=== PATIENT | male | born 1980 | race Caucasian/White ===

== ENCOUNTER 2018-03-27 15:30 | Emergency (ER) | payer MEDICAID, SELFPAY ==
[2018-03-27 15:59] VITALS: BP 113/84; PULSE 110; RESP 16; TEMP 37.3; O2SAT 99
--- NOTE | 2018-03-27 16:09 | ED.GENADUL_ITS ---
Disposition Clinical Impression: Cutaneous abscess Disposition: HOME Condition: Good Instructions: Abscess (ED) Additional Instructions: Take antibiotics as prescribed. Remove wick in 24-48 hours with dressing change and then may change to regular Band-Aid. Take antibiotics as prescribed. Please follow-up with Dr. De Jesus as you have planned. Return to the emergency department for any acute concerns Prescriptions: Sulfameth/Trimeth Ds [Bactrim Ds Tablet] 1 each PO BID #14 tab Medical Decision Making - Medical Decision Making 37-year-old male presents with abscess to right upper back. Consented for incision and drainage; performed with release of purulent fluid. Iodoform wick placed. Patient instructed as to home care and follow-up. I will place him on a course of oral antibiotics. He states he has plan to see Dr. De Jesus in follow- up for reevaluation of recurrent scrotal abscesses. History of Present Illness - General Chief complaint: Cellulitis Stated complaint: ?CYST ON BACK Time Seen by Provider: 03/27/18 16:03 - History of Present Illness Initial comments: Cyst on right back: This is a 37-year-old male with previous cyst requiring lancing. He states that he has a gradual onset over to 3 days time of right upper back swelling, moderate aching, nonradiating pain associated with drainage from what he feels is a cyst. He denies manipulating the area. He has not had a fever but has noted some chills. No other exacerbating or ameliorating factors per - Related Data Mirtazapine [Remeron] 30 mg PO HS 11/10/12 Phenobarbital 32.4 mg PO DAILY 11/10/12 Phenobarbital 97.2 mg PO HS 11/10/12 Citalopram Hydrobromide [Celexa] 40 mg PO DAILY 10/15/16 Melatonin/Pyridoxine HCl (B6) [Melatonin 5 mg Tablet] 2 each PO PRN 02/04/18 Dicyclomine [Bentyl] 10 mg PO Q8H PRN #15 cap 02/12/18 Diclofenac Sodium [Voltaren] 4 g TP QID #100 g 02/19/18 Sulfamethoxazole/Trimethoprim [Bactrim Ds Tablet] 1 tab-cap PO BID #14 tab-cap 02/23/18 Sulfameth/Trimeth Ds [Bactrim Ds Tablet] 1 each PO BID #14 tab 03/27/18 Allergies Allergy/AdvReac Type Severity Reaction Status Date / Time aspirin Allergy Intermediate Skin Rash Unverified 03/27/18 16:02 ketorolac tromethamine Allergy Unknown Unverified 03/27/18 16:02 [From Toradol] lidocaine Allergy pt reports Unverified 03/27/18 16:02 seizures tramadol AdvReac Mild stomach Unverified 03/27/18 16:02 cramps codeine AdvReac Unverified 03/27/18 16:02 ibuprofen AdvReac Nausea Unverified 03/27/18 16:02 Review of Systems Other: 6 systems reviewed, otherwise negative Past Medical History - Past Medical History Medical history: seizures Migraines, DJD of L4-L5 Surgical history: other (rt it band) Family history: CAD/DE, cancer, diabetes - Social History Alcohol use: none Drug use: none General Exam - General Limitations: no limitations General appearance: alert, in no apparent distress - Head Head exam: Present: atraumatic, normocephalic - Eye Eye exam: Present: PERRL, EOMI - ENT ENT exam: Present: normal exam - Respiratory Respiratory exam: Present: normal lung sounds bilaterally. Absent: respiratory distress - Cardiovascular Cardiovascular Exam: Present: regular rate, normal rhythm - GI/Abdominal GI/Abdominal exam: Present: soft. Absent: distended, tenderness - Extremities Exam Extremities exam: Present: normal inspection - Back Exam Back exam: Present: other (Right upper back, paramidline tender cystic structure with surrounding erythema. It measures approximate 3 x 5 cm ) - Neurological Exam Neurological exam: Present: alert, oriented X3 - Psychiatric Psychiatric exam: Present: normal affect, normal mood - Skin Skin exam: Present: warm, dry, intact Course Vital Signs - 24 hr 03/27/18 15:59 Temperature 37.3 C Pulse 110 H Respiratory 16 Rate Blood Pressure 113/84 Pulse Oximetry 99
== END 2018-03-27 16:51 | disposition home or self-care (01) ==
PROVIDERS: Emergency Provider Emergency Medicine; PCP Family Medicine
DX: L02.12 Furuncle of neck (principal)
CPT/HCPCS: 10060

== ENCOUNTER 2018-09-16 13:21 | Emergency (ER) | payer MEDICAID, SELFPAY ==
[2018-09-16 13:24] VITALS: BP 119/59; PULSE 110; RESP 20; TEMP 37; O2SAT 97
--- NOTE | 2018-09-16 13:38 | ED.GENADUL_ITS ---
Discharge Plan Disposition Patient Disposition: HOME Condition: Good Discharge Details Chief Complaint: Abd Prob Clinical Impression: Gastritis, Vomiting, Influenza Primary Care Provider: Ehsan Crockett ED Provider: Tree Huynh Home Meds and New Rx's Prescriptions: New ondansetron HCl [Zofran] 4 mg tablet 4 mg PO TID Qty: 10 RF: 0 No Action melatonin-pyridoxine HCl (B6) 1 EACH tablet 2 ea PO PRN RF: 0 diclofenac sodium [Voltaren] 100 GM gel 4 g Topical QID Qty: 100 RF: 0 sulfamethoxazole-trimethoprim [Bactrim DS] 1 EACH tablet 1 tab-cap PO BID Qty: 14 RF: 0 mirtazapine 30 MG tablet 30 mg PO HS RF: 0 phenobarbital 32.4 MG tablet 97.2 mg PO HS RF: 0 phenobarbital 32.4 MG tablet 32.4 mg PO DAILY RF: 0 citalopram [Celexa] 40 MG tablet 40 mg PO DAILY RF: 0 sulfamethoxazole-trimethoprim 1 TAB tablet 1 ea PO BID Qty: 14 RF: 0 dicyclomine 10 MG capsule 10 mg PO Q8H PRN (Reason: Abdominal Pain) Qty: 15 RF: 0 Discharge Instructions Instructions: Influenza (ED), Gastroenteritis (ED) Additional Instructions: Please drink 10-12 cups of water per day. Please take the Zofran as needed for nausea. If you notice any worsening of your symptoms, or any new symptoms such as vomiting, diarrhea, fever, chills, shortness of breath, chest pain, numbness, weakness, or fainting , please return immediately to the emergency department for reevaluation. Please follow up with your primary care provider as soon as possible for reassessment and reevaluation. As always, it was a pleasure participating in your medical care today. Referrals: Ehsan Crockett [Primary Care Provider] - Medical Decision Making This is a very pleasant 38-year-old male who presents for evaluation of upper respiratory-like symptoms, in conjunction with nausea and vomiting. He does have mild headache but denies any neck pain or stiffness. Physical exam demonstrates no significant abdominal tenderness, no signs or symptoms concerning for meningitis. He does look notably dehydrated. He has sick contacts of both his mother and his son who has similar symptoms. Physical exam findings are inconsistent with acute surgical abdomen. We will rehydrate the patient, evaluate for any significant laboratory abnormality. I did discuss with him potential imaging, however the patient would like to hold off on any imaging at this time. We discussed risks and benefits of this and the patient understands 2:52 PM Laboratory workup shows no significant abnormalities, unfortunately the patient is flu positive. No significant white count, no bilirubin or transaminitis abnormalities. No signs of significant pancreatitis. On reassessment after fluid hydration, and medication for migraine the patient is feeling notably resolved. He has been able to tolerate p.o. well without any difficulty. No abdominal pain on repeat exam. Vital signs have improved, diagnosis of flu, notable rehydration and no concerning abdominal exam I feel the patient be dis charged home. He still does not want any radiographic imaging. We discussed red flags which to return, the importance of hydration and close follow-up. I have extensively reviewed the treatment plan and discharge instructions with the patient and their family. I have addressed all patient concerns at this time. The patient and family was made aware of what symptoms to monitor for that would warrant a return to the emergency department. Discussed the plan with the patient and family, they demonstrate verbal understanding and agreement with our assessment and plan at this time. HPI General Date/Time Provider Initiated Documentation: 09/16/18 13:22 . HPI Narrative: This is a 38-year-old male with a past medical history of seizures, and chronic migraines who presents today with for evaluation of cough, URI-like symptoms, nausea and vomiting for the last 2-3 days in conjunction with mild chills. The patient states that he has a feeling sick contact at home with both his mother and his son who has similar symptoms. He denies any fever. He also does admit to a very mild headache, which states that feels similar to his chronic migraines. He denies any neck pain or stiffness O. He denies any significant abdominal pain states that his abdominal sensation is mainly nausea. He denies any chest pain or shortness of breath. He denies any hematochezia, melena, acholic stool, hematemesis, or diarrhea. Denies any recent medication changes he has no other complaints at this time. Patient has been able to eat and drink some, but does feel notably nauseous after this Related Data Home Medications Medication Instructions Recorded Confirmed mirtazapine 30 mg PO HS 11/10/12 03/27/18 phenobarbital 32.4 mg PO DAILY 11/10/12 03/27/18 phenobarbital 97.2 mg PO HS 11/10/12 03/27/18 citalopram [Celexa] 40 mg PO DAILY 10/15/16 03/27/18 melatonin-pyridoxine HCl (B6) 2 ea PO PRN 02/04/18 03/27/18 dicyclomine 10 mg PO Q8H PRN #15 cap 02/12/18 03/27/18 diclofenac sodium [Voltaren] 4 g TOPICAL QID #100 g 02/19/18 sulfamethoxazole-trimethoprim 1 tab-cap PO BID #14 tab-cap 02/23/18 [Bactrim DS] sulfamethoxazole-trimethoprim 1 ea PO BID #14 tab 03/27/18 ondansetron HCl [Zofran] 4 mg PO TID #10 tab 09/16/18 Previous Rx's Medication Instructions Recorded dicyclomine 10 mg PO Q8H PRN #15 cap 02/12/18 diclofenac sodium [Voltaren] 4 g TOPICAL QID #100 g 02/19/18 sulfamethoxazole-trimethoprim 1 tab-cap PO BID #14 tab-cap 02/23/18 [Bactrim DS] sulfamethoxazole-trimethoprim 1 ea PO BID #14 tab 03/27/18 ondansetron HCl [Zofran] 4 mg PO TID #10 tab 09/16/18 Allergies Allergy/AdvReac Type Severity Reaction Status Date / Time aspirin Allergy Intermediate Skin Rash Unverified 03/27/18 16:02 ketorolac tromethamine Allergy Unknown Unverified 03/27/18 16:02 [From Toradol] lidocaine Allergy pt reports Unverified 03/27/18 16:02 seizures tramadol AdvReac Mild stomach Unverified 03/27/18 16:02 cramps codeine AdvReac Unverified 03/27/18 16:02 ibuprofen AdvReac Nausea Unverified 03/27/18 16:02 General Stated Complaint: Abd Prob KELY: 3 Review of Systems Review of Systems All systems reviewed & are unremarkable except as noted in HPI and below PFSH Social History Smoking and Tabacco status: Former Tobacco Use Exam Narrative Exam Narrative: 1.Const: Well-nourished, Well-developed, appearing stated age 2.Eyes: PERRL, no conjunctival injection, and symmetrical lids. 3.ENT: Atraumatic external nose and ears. Notably dry MM. Neck: Symmetric, trachea midline, No thyromegaly. Patient demonstrates good movement of cervical neck. There is no nuchal rigidity, no nuchal tenderness. Patient is able to flex the neck without any difficulty or significant pain. Negative Kernig's and Brudzinski sign. 4.CVS: +S1/S2, No murmurs or gallops. Peripheral pulses 2+ and equal in all extremities. Brisk capillary refill in all extremities. 5.RESP: Unlabored respiratory effort. Clear to auscultation bilaterally. No wheezes rales or rhonchi 6.GI: Soft, Nontender/Nondistended, No hepatosplenomegaly. No guarding or rebound. No signs of an acute surgical abdomen. Negative obturator and psoas sign. No flank or CVA tenderness. 7.MSK: Normocephalic/Atraumatic, Extremities w/o deformity or ttp No cyanosis or clubbing, Normal movement of all extremities 8.Skin: Warm, Dry. No rashes or lesions. 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 Sensation grossly intact, no focal neurologic deficits. 10.Psych: (AAO) x3. Appropriate mood and affect Course Vital Signs Temperature 37.0 C 09/16/18 13:24 Pulse 110 H 09/16/18 13:24 Respiratory Rate 20 09/16/18 13:24 Blood Pressure 119/59 L 09/16/18 13:24 Pulse Oximetry 97 09/16/18 13:24 Temperature 37.0 C 09/16/18 13:24 Temperature Source Temporal Artery Scan 09/16/18 13:24 Pulse 110 H 09/16/18 13:24 Respiratory Rate 20 09/16/18 13:24 Blood Pressure 119/59 L 09/16/18 13:24 Blood Pressure Position Sitting 09/16/18 13:24 Pulse Oximetry 97 09/16/18 13:24 Oxygen Delivery Method Room Air 09/16/18 13:24 Oxygen Flow Rate 0 09/16/18 13:24
[2018-09-16] MEDS: Acetaminophen 500 MG TAB 1000 MG PO (13:46)
[2018-09-16] MEDS: methylPREDNISolone SUCC 125 MG VIAL IVP (13:47)
[2018-09-16] MEDS: diphenhydrAMINE 25 MG CAP PO (13:47)
[2018-09-16] MEDS: Normal Saline 1,000 ML 1000 ML IV (13:47)
[2018-09-16] MEDS: Ondansetron 4 MG/2 ML VIAL IVP (13:47)
[2018-09-16] MEDS: Metoclopramide 10 MG/2 ML VIAL 20 MG IVP (13:48)
[2018-09-16] MEDS: Ketorolac 30 MG/ML VIAL 15 MG IVP (13:48)
[2018-09-16 13:51] LABS: Abs Immature Grans 0.01 k/cumm (0.0-0.09); Absolute Basophil Count 0.01 k/cumm (0.0-0.2); Absolute Eosinophil Count 0.02 k/cumm (0.0-0.7); Absolute Lymphocyte Count 0.37 k/cumm (1.2-3.4); Absolute Monocyte Count 0.65 k/cumm (0.11-0.7); Absolute Neutrophil Count 4.39 k/cumm (1.2-6.7); Basophils % 0.2; Eosinophils % 0.4; HCT 45.7 % (40.0-50.0); HGB 15.4 g/dL (13.5-17.5); Immature Grans % 0.2; Lymphocytes % 6.8; Mean Corp. HGB Concentration 33.7 g/dL (32.0-36.0); Mean Corpuscular Hemoglobin 29.2 pg (27.0-33.0); Mean Corpuscular Volume 86.7 fL (80-95); Mean Platelet Volume 11.3 fL (8.0-11.0); Monocytes % 11.9; Neutrophils % 80.5; Platelet Count 213 x1000/uL (130-400); RBC 5.27 m/cumm (4.50-6.00); RBC Distribution Width 13.3 % (11.8-14.1); White Blood Cell Count 5.45 k/cumm (4.4-10.8)
[2018-09-16 14:02] LABS: ALT 26 U/L (12-78); AST 20 U/L (15-37); Albumin 3.8 g/dL (3.4-5.0); Alkaline Phosphatase 89 U/L (46-116); Anion Gap 8.7 mmol/L (3-11); BUN 7 mg/dL (7-18); Bilirubin, Total 0.3 mg/dL (0.2-1.0); CO2 30.3 mmol/L (21.0-32.0); CREATININE 1.12 mg/dL (0.70-1.30); Chloride 101 mmol/L (98-107); Glucose 104 mg/dL (70-100); Lipase 62 U/L (73-393); Potassium 3.7 mmol/L (3.5-5.1); Sodium 140 mmol/L (136-145); Total Protein 7.8 g/dL (6.4-8.2)
--- NOTE | 2018-09-16 14:27 | NUR.NOTE ---
Nursing Note: Pt states symptoms have improved after fluids and medicine. Pt given po water to see if he can tolerate. will continue to monitor.
[2018-09-16 14:50] VITALS: BP 111/73; PULSE 95; RESP 18; TEMP 36.1; O2SAT 95
== END 2018-09-16 14:54 | disposition home or self-care (01) ==
PROVIDERS: Emergency Provider Student in an Organized Health Care Education/Training Program; PCP Family Medicine
DX: K52.9 Noninfective gastroenteritis and colitis, unspecified (principal); R11.10 Vomiting, unspecified; J10.1 Influenza due to other identified influenza virus with other respiratory manifestations; R51 Headache
CPT/HCPCS: 80053; 83690; 87449; 96361; 96374; 96375; 99284; 85025; J1885; J2405; J2765; J2930

== ENCOUNTER 2018-09-22 16:20 | Emergency (ER) | payer MEDICAID, SELFPAY ==
--- NOTE | 2018-09-22 16:38 | ED.GENADUL_ITS ---
Discharge Plan Disposition Patient Disposition: HOME Condition: Stable Discharge Details Chief Complaint: RashLesion Clinical Impression: Abscess of axilla, left Primary Care Provider: Ehsan Crockett ED Provider: Dayne Clarke Home Meds and New Rx's Prescriptions: New sulfamethoxazole-trimethoprim [Bactrim DS] 800-160 mg tablet 1 tab PO BID 5 Days Qty: 10 RF: 0 Continued melatonin-pyridoxine HCl (B6) 1 EACH tablet 2 ea PO PRN RF: 0 diclofenac sodium [Voltaren] 100 GM gel 4 g Topical QID Qty: 100 RF: 0 mirtazapine 30 MG tablet 30 mg PO HS RF: 0 phenobarbital 32.4 MG tablet 97.2 mg PO HS RF: 0 citalopram [Celexa] 40 MG tablet 40 mg PO DAILY RF: 0 ondansetron HCl [Zofran] 4 mg tablet 4 mg PO TID Qty: 10 RF: 0 dicyclomine 10 MG capsule 10 mg PO Q8H PRN (Reason: Abdominal Pain) Qty: 15 RF: 0 Discharge Instructions Instructions: Abscess (ED) Additional Instructions: Please apply warm packs to your area of abscess 3-4 times daily over the next 3- 4 days and return immediately for any new or significant worsening of symptoms. Please take your antibiotic until fully completed and follow-up with primary care provider as needed for reassessment Referrals: Ehsan Crockett [Primary Care Provider] - (As needed for reassessment) Discharge Data Discharge Date/Time-TO BE ENTERED AT DEPARTURE: 09/22/18 17:25 Medical Decision Making Patient presenting the emergency department for chief complaint of left axilla abscess. Patient states that he noticed this this morning. Patient denies any fever chills, other sores or lesions, denies any other symptoms. There is a 1 cm abscess underneath left axilla which is fluctuant. Patient did give consent to I&D. Of notation on patient's allergies was listed lidocaine but patient states that he has had this after he was reported that he had a reaction to it. Did inform patient of risk versus benefit of doing lidocaine versus other anesthetic and patient stated that lidocaine was fine. Please see procedure note for procedure that was without incidence beyond mild bleeding noted afterwards. Patient placed up on Bactrim due to history of multiple abscess. Return precautions were discussed. After discussion of diagnosis and plan of care patient is no further needs, questions, or concerns and states clear understanding to return to the emergency department for any worsening symptoms. HPI General Mode of arrival: ambulatory . Date/Time Provider Initiated Documentation: 09/22/18 16:23 . Limitations to Documentation: no limitations . Information obtained by: patient . History of Present Illness 38 year old M presents to the emergency department with the chief complaint of left axillary abscess, described as moderate, with intensity rated at 8. Quality is described as sharp, and is localized to the left and upper extremity. Patient reports no radiation. Patient started experiencing this day(s) (1) and it has been constant. Patient notes no other symptoms.. Patient did receive the following treatments prior to arrival, none Related Data Home Medications Medication Instructions Recorded Confirmed mirtazapine 30 mg PO HS 11/10/12 09/22/18 phenobarbital 97.2 mg PO HS 11/10/12 09/22/18 citalopram [Celexa] 40 mg PO DAILY 10/15/16 09/22/18 melatonin-pyridoxine HCl (B6) 2 ea PO PRN 02/04/18 09/22/18 dicyclomine 10 mg PO Q8H PRN #15 cap 02/12/18 09/22/18 diclofenac sodium [Voltaren] 4 g TOPICAL QID #100 g 02/19/18 09/22/18 ondansetron HCl [Zofran] 4 mg PO TID #10 tab 09/16/18 09/22/18 sulfamethoxazole-trimethoprim 1 tab PO BID 5 Days #10 tab 09/22/18 [Bactrim DS] Previous Rx's Medication Instructions Recorded dicyclomine 10 mg PO Q8H PRN #15 cap 02/12/18 diclofenac sodium [Voltaren] 4 g TOPICAL QID #100 g 02/19/18 ondansetron HCl [Zofran] 4 mg PO TID #10 tab 09/16/18 sulfamethoxazole-trimethoprim 1 tab PO BID 5 Days #10 tab 09/22/18 [Bactrim DS] Allergies Allergy/AdvReac Type Severity Reaction Status Date / Time aspirin Allergy Intermediate Skin Rash Unverified 09/22/18 16:48 ketorolac tromethamine Allergy Unknown Unverified 09/22/18 16:48 [From Toradol] lidocaine Allergy pt reports Unverified 09/22/18 16:48 seizures tramadol AdvReac Mild stomach Unverified 09/22/18 16:48 cramps codeine AdvReac Unverified 09/22/18 16:48 ibuprofen AdvReac Nausea Unverified 09/22/18 16:48 General KELY: 3 Review of Systems Constitutional Denies chills and Denies fever(s) Cardiovascular Denies chest pain and Denies dyspnea Respiratory Denies cough and Denies dyspnea Integumentary/Breasts Reports as per HPI and Reports sores Hematologic/Lymphatic Denies lymphadenopathy PFSH Social History Smoking and Tabacco status: Former Tobacco Use Exam Const General: cooperative, healthy appearing and no acute distress Nutritional Appearance: average body habitus Orientation: alert, awake and oriented x3 Chest Chest: normal inspection of the chest Resp Effort & Inspection: normal respiratory effort and able to speak in complete sentences Auscultation: clear to auscultation bilaterally Cardio Rate: regular rate Rhythm: regular rhythm Heart Sounds: S1 normal and S2 normal Skin General skin exam: fluctuance (Erythematous abscess left axilla proximately 1cm) Procedures Abscess I/D Site: Upper Extremity Side (if applicable): Left Sedation/analgesia: None Local Anesthetic: Lidocaine 2% Amount of anesthesia used (mL): 1 Technique: Incised with #11 Blade Amount of fluid expressed (mL): 1 Irrigation: No Packing used?: None Complications: Bleeding
[2018-09-22 16:45] VITALS: BP 127/85; PULSE 91; RESP 12; TEMP 37; O2SAT 99
[2018-09-22] MEDS: Sulfameth/Trimeth DS TAB 1 TAB PO (17:23)
== END 2018-09-22 17:25 | disposition home or self-care (01) ==
PROVIDERS: Emergency Provider Nurse Practitioner Family; PCP Family Medicine
DX: L02.412 Cutaneous abscess of left axilla (principal)
CPT/HCPCS: 10060

== ENCOUNTER 2018-12-10 11:00 | Emergency (ER) | payer MEDICAID, SELFPAY ==
[2018-12-10 11:06] VITALS: BP 140/96; PULSE 98; RESP 20; TEMP 36.7; O2SAT 99
--- NOTE | 2018-12-10 11:15 | ED.GENADUL_ITS ---
Discharge Plan Disposition Patient Disposition: HOME Condition: Improving Discharge Details Chief Complaint: Cellulitis Clinical Impression: Abscess of left thigh Primary Care Provider: Ehsan Crockett ED Provider: Nacho Padilla Home Meds and New Rx's Prescriptions: New sulfamethoxazole-trimethoprim [Bactrim DS] 800-160 mg tablet 1 tab PO BID 7 Days Qty: 14 RF: 0 Continued melatonin-pyridoxine HCl (B6) 1 EACH tablet 2 ea PO PRN RF: 0 diclofenac sodium [Voltaren] 100 GM gel 4 g Topical QID Qty: 100 RF: 0 mirtazapine 30 MG tablet 30 mg PO HS RF: 0 citalopram [Celexa] 40 MG tablet 40 mg PO DAILY RF: 0 ondansetron HCl [Zofran] 4 mg tablet 4 mg PO TID Qty: 10 RF: 0 dicyclomine 10 MG capsule 10 mg PO Q8H PRN (Reason: Abdominal Pain) Qty: 15 RF: 0 Discharge Instructions Instructions: Abscess (ED) Additional Instructions: Home to rest today. Elevate leg to reduce swelling. Return in 3 days time for repeat evaluation and removal of packing. Take antibiotics as prescribed. Continue your regular medications. Medical Decision Making 38-year-old male with left lateral thigh cellulitis with developing abscess. He is afebrile and otherwise well-appearing and is for numerous cysts in the past. Bedside ultrasound reveals small area of fluid approximately 1 cm deep to surface. Patient consented for incision and drainage. Has an intolerance to lidocaine but no true allergy. He was anesthetized with lidocaine, prepped and draped in standard sterile fashion, incised with 11 blade with release of approximately 1 cc of bloody purulent fluid that was sent for culture. Iodoform gauze was placed. I will place him on Bactrim. He will return for wound check and removal of packing in 3 days time. HPI General Mode of arrival: ambulatory . Date/Time Provider Initiated Documentation: 12/10/18 11:05 . Limitations to Documentation: no limitations . Information obtained by: patient . History of Present Illness 38 year old M presents to the emergency department with the chief complaint of L thigh cyst/infection, described as moderate, Quality is described as dull and constant, and is localized to the left and lower extremity. Patient reports no radiation. Patient started experiencing this day(s) and it has been constant. No relieving factors improve symptom(s), No exacerbating factors reported . Patient notes other (drainage). Related Data Home Medications Medication Instructions Recorded Confirmed mirtazapine 30 mg PO HS 11/10/12 12/10/18 citalopram [Celexa] 40 mg PO DAILY 10/15/16 12/10/18 melatonin-pyridoxine HCl (B6) 2 ea PO PRN 02/04/18 12/10/18 dicyclomine 10 mg PO Q8H PRN #15 cap 02/12/18 12/10/18 diclofenac sodium [Voltaren] 4 g TOPICAL QID #100 g 02/19/18 09/22/18 ondansetron HCl [Zofran] 4 mg PO TID #10 tab 09/16/18 12/10/18 sulfamethoxazole-trimethoprim 1 tab PO BID 7 Days #14 tab 12/10/18 [Bactrim DS] Previous Rx's Medication Instructions Recorded dicyclomine 10 mg PO Q8H PRN #15 cap 02/12/18 diclofenac sodium [Voltaren] 4 g TOPICAL QID #100 g 02/19/18 ondansetron HCl [Zofran] 4 mg PO TID #10 tab 09/16/18 sulfamethoxazole-trimethoprim 1 tab PO BID 7 Days #14 tab 12/10/18 [Bactrim DS] Allergies Allergy/AdvReac Type Severity Reaction Status Date / Time aspirin Allergy Intermediate Skin Rash Unverified 12/10/18 11:09 ketorolac tromethamine Allergy Unknown Unverified 12/10/18 11:09 [From Toradol] lidocaine Allergy pt reports Unverified 12/10/18 11:09 seizures tramadol AdvReac Mild stomach Unverified 12/10/18 11:09 cramps codeine AdvReac Unverified 12/10/18 11:09 ibuprofen AdvReac Nausea Unverified 12/10/18 11:09 General Stated Complaint: Cellulitis KELY: 3 Review of Systems Review of Systems 6 systems reviewd and otherwise neg PFSH Social History Smoking/Tobacco Use Status: Former Tobacco Use Alcohol Intake: never Drug use: Occasionally Substance use type: marijuana Do you feel safe at home: Yes Do you feel safe in your relationship?: Yes Exam Narrative Exam Narrative: GEN: awake, alert, oriented 3. Pleasant, well groomed, interactive. HEAD: Normocephalic, atraumatic ENT: Mucous membranes moist, oropharynx unremarkable, External ear exam unremarkable EYES: PERRL, EOMI NECK: Full ROM, no TIBURCIO, no menigismus CHEST/RESP: Nontender, clear to auscultation bilateral, no wheeze/rhonchi/rales CARDIOVASCULAR: RRR, no murmur, rub shani. 2+ Rad pulse bilateral ABDOMEN: Soft, nontender, no mass. +Bowel sounds EXT: Full ROM,left eliz lateral thigh with area of excoriated skin with surrounding erythema of approximately 3 cm and mild fluctuance. Neuro: Grossly normal neurologic exam, conversant, interactive. Psych: Speech fluent, thoughts congruent, affect normal Course Vital Signs Temperature 36.7 C 12/10/18 11:06 Pulse 98 H 12/10/18 11:06 Respiratory Rate 20 12/10/18 11:06 Blood Pressure 140/96 H 12/10/18 11:06 Pulse Oximetry 99 12/10/18 11:06 Temperature 36.7 C 12/10/18 11:06 Temperature Source Skin 12/10/18 11:06 Pulse 98 H 12/10/18 11:06 Respiratory Rate 20 12/10/18 11:06 Blood Pressure 140/96 H 12/10/18 11:06 Blood Pressure Position Sitting 12/10/18 11:06 Pulse Oximetry 99 12/10/18 11:06 Oxygen Delivery Method Room Air 12/10/18 11:06 Oxygen Flow Rate 0 12/10/18 11:06 Pain Level 7 12/10/18 11:06 Comment 12/10/18 11:06 Procedures Abscess I/D Site: Lower Extremity Side (if applicable): Left Local Anesthetic: Lidocaine 1% Amount of anesthesia used (mL): 2 Technique: Needle Aspiration Amount of fluid expressed (mL): 1 Irrigation: Yes Packing used?: Iodoform
== END 2018-12-10 11:40 | disposition home or self-care (01) ==
PROVIDERS: Emergency Provider Emergency Medicine; PCP Family Medicine
DX: L02.416 Cutaneous abscess of left lower limb (principal); B95.61 Methicillin susceptible Staphylococcus aureus infection as the cause of diseases classified elsewhere
CPT/HCPCS: 10060; 87077; 87070; 87186; 87205

== ENCOUNTER 2020-01-31 13:14 | Emergency (ER) | payer MEDICAID, SELFPAY ==
[2020-01-31 13:18] VITALS: BP 152/96; PULSE 101; TEMP 37.1; O2SAT 100
--- NOTE | 2020-01-31 14:03 | ED.GENADUL_ITS ---
Discharge Plan Disposition Patient Disposition: HOME Condition: Stable Discharge Details Chief Complaint: Cellulitis Clinical Impression: Cellulitis Primary Care Provider: Ehsan Crockett ED Provider: Josh Mosher Home Meds and New Rx's Prescriptions: New sulfamethoxazole-trimethoprim [Bactrim DS] 800-160 mg tablet 1 tab PO BID Qty: 20 RF: 0 Continued melatonin-pyridoxine HCl (B6) 1 EACH tablet 2 ea PO PRN RF: 0 mirtazapine 30 MG tablet 30 mg PO HS RF: 0 ondansetron HCl [Zofran] 4 mg tablet 4 mg PO TID PRNRF: 0 Discharge Instructions Instructions: Cellulitis (ED) Additional Instructions: Bactrim as directed. Rest, elevate, warm compresses and soaks every 2 hours for 20 minutes. [id number] Tylenol and/or Motrin as directed for discomfort. Please watch for new or worsening symptoms and return to the ER for any concerns. I recommend changing the antibiotic dressing daily. I would contact your primary care provider later today or tomorrow for reevaluation, hopefully in the next 2-3 days for wound reevaluation. Medical Decision Making Patient who is right-hand dominant presents with left forearm cellulitis. There is no obvious pointing abscess or fluctuance however patient is concerned because he drained it yesterday. Centrally there is some mild induration, difficult to say whether there is a fluid collection or simply localized cellulitis. Patient would like an attempt for I&D, I believe this to be reasonable. There is no lymphangitic streaking. Patient is afebrile. Neuro, vascular, tendon intact. Will treat cellulitis with Bactrim. Please see procedural note, I&D attempted made however no purulent drainage expressed. The wound was cleaned and dressed. Patient has no additional questions or concerns and is comfortable with discharge and be treated with Bactrim for cellulitis. Medical Records Medical records reviewed: Yes I reviewed the patient's medical records. HPI General Mode of arrival: ambulatory . Date/Time Provider Initiated Documentation: 01/31/20 13:16 . Limitations to Documentation: no limitations . Information obtained by: patient . HPI Narrative: This is a 39-year-old gentleman, [id number], tetanus status up-to-date, presenting for an infection to his left forearm that he noticed yesterday. He reports that yesterday the area centrally was draining with a purulent drainage. He reports mild redness around the area, moderate pain. He reports a history of cyst but not in this area. He denies fever, numbness, tingling, weakness or rash elsewhere on his body. Denies joint pain. Related Data Home Medications Medication Instructions Recorded Confirmed mirtazapine 30 mg PO HS 11/10/12 01/31/20 melatonin-pyridoxine HCl (B6) 2 ea PO PRN 02/04/18 01/31/20 ondansetron HCl [Zofran] 4 mg PO TID PRN 01/31/20 01/31/20 sulfamethoxazole-trimethoprim 1 tab PO BID #20 tab 01/31/20 [Bactrim DS] Previous Rx's Medication Instructions Recorded sulfamethoxazole-trimethoprim 1 tab PO BID #20 tab 01/31/20 [Bactrim DS] Allergies Allergy/AdvReac Type Severity Reaction Status Date / Time aspirin Allergy Intermediate Skin Rash Unverified 01/31/20 13:21 ketorolac tromethamine Allergy Unknown Unverified 01/31/20 13:21 [From Toradol] lidocaine Allergy pt reports Unverified 01/31/20 13:21 seizures tramadol AdvReac Mild stomach Unverified 01/31/20 13:21 cramps codeine AdvReac Unverified 01/31/20 13:21 ibuprofen AdvReac Nausea Unverified 01/31/20 13:21 General Stated Complaint: Cellulitis KELY: 4 Review of Systems Constitutional Constitutional: Denies fever(s) and Denies weakness Gastrointestinal Gastrointestinal: Denies nausea Musculoskeletal Musculoskeletal: Denies arthralgias, Denies numbness and Denies tingling Integumentary/Breasts Skin/Breast: Reports erythema Neurologic Neurologic: Denies numbness, Denies tingling and Denies weakness [facility] Social History Smoking/Tobacco Use Status: Former Tobacco Use Alcohol Intake: never Drug use: Occasionally Substance use type: marijuana Do you feel safe at home: Yes Do you feel safe in your relationship?: Yes Exam Const General: cooperative, healthy appearing, comfortable and no acute distress Orientation: alert and awake HENSD Head: normal to inspection, normocephalic and atraumatic Mouth: moist mucous membranes Eyes Conjunctivae: conjunctivae normal Neck Neck: normal visual inspection, trachea midline and supple Resp Effort & Inspection: normal respiratory effort and able to speak in complete sentences Cardio Rate: regular rate Rhythm: regular rhythm Skin Lesions: no lesions Neuro General: patient alert, patient awake, moves all extremities and no focal motor deficits Sensory Exam: no sensory deficits noted Extrem Left upper extremity: full ROM and normal capillary refill; no cyanosis and no edema Elbow/forearm/wrist images: 1. Approximate 3 x 4 cm area of warmth, macular erythema. Neuro, vascular, tendon intact. Centrally there is an area of mild induration without fluctuance or pointing abscess. There is no lymphangitic streaking. There is no active drainage. Does not extend to the elbow. Psych Appearance: grossly normal Mental Status: mental status grossly normal Course Vital Signs Vital signs: Vital Signs Temperature 37.1 C 01/31/20 13:18 Pulse 101 H 01/31/20 13:18 Blood Pressure 152/96 H 01/31/20 13:18 Pulse Oximetry 100 01/31/20 13:18 Temperature 37.1 C 01/31/20 13:18 Temperature Source Temporal Artery Scan 01/31/20 13:18 Pulse 101 H 01/31/20 13:18 Respiratory Effort Non-Labored 01/31/20 13:20 Blood Pressure 152/96 H 01/31/20 13:18 Blood Pressure Position Sitting 01/31/20 13:18 Pulse Oximetry 100 01/31/20 13:18 Oxygen Delivery Method Room Air 01/31/20 13:18 Oxygen Flow Rate 0 01/31/20 13:18 Procedures Abscess I/D Site: Upper Extremity Side (if applicable): Left Local Anesthetic: Lidocaine 2% and With Epi Amount of anesthesia used (mL): 4 Technique: Incised with #11 Blade Amount of fluid expressed (mL): 0 Irrigation: No Packing used?: None Complications: Other (None, wound cleaned and dressed)
== END 2020-01-31 14:13 | disposition home or self-care (01) ==
PROVIDERS: Emergency Provider Physician Assistant; PCP Family Medicine
DX: L03.114 Cellulitis of left upper limb (principal)
CPT/HCPCS: 10060

== ENCOUNTER 2020-12-08 16:53 | Emergency (ER) | payer MEDICAID, SELFPAY ==
[2020-12-08] VITALS (17 sets, daily range): BP systolic 110–128; BP diastolic 75–89; PULSE 88–113; RESP 0–18; TEMP 36.7–36.9; O2SAT 85–99
--- NOTE | 2020-12-08 16:45 | RT.EKG_ITS ---
APPROVED REPORT Exam: Resting ECG Reason for Exam: SYNCOPE Patient Location: E HR:108 bpm ECG Measurements Heart Rate 108 AXIS LA 167 P 67 QRSd 96 QRS 67 QT 318 T 34 QTc 426 Conclusion Sinus tachycardia...rate> 99 Physician: Rate 108, sinus tachycardia, minimal elevation in V1, and J-point elevation in V2, no evid ence of STEMI. Review of EKG from 01/31/2017 demonstrates similar/identical findings
--- NOTE | 2020-12-08 17:00 | DI.CT_ITS ---
Exam(s) CT HEAD CERVICAL SPINE WO EXAM: CT HEAD CERVICAL SPINE WO CLINICAL HISTORY: fall, hit head, seizure. TECHNIQUE: Imaging Protocol: Axial computed tomography images with coronal and sagittal reformatted images were created and reviewed COMPARISON: CT NECK WITH CONTRAST from 01/31/2017 FINDINGS: BRAIN: Possible fracture of the anterior nasal septum. Possibly not acute given that there is no adjacent f luid-blood. There are no skull fractures nor fluid in the visualized paranasal sinuses. There is no evidence of intracranial hemorrhage, mass effect, or shift of midline structures. There are no extra-axial fluid collections. The ventricles are not enlarged or shifted and there is no blo od within the ventricular system nor within the basal cisterns. CERVICAL SPINE: There is no evidence of fracture nor listhesis. No significant prevertebral soft tissue swelling. There is no significant facet joint malalignment. No significant osseous lesions evident. IMPRESSION: No acute intracranial findings on this noninfused CT scan of the brain. No evidence of cervical spine fracture, malalignment, nor acute compromise of the cervical spinal can al. There is straightening of the cervical curvature which is probably related to muscle spasm. RADIATION DOSE DELIVERED: 1,374.35mGy.cm Total DLP DATA REPOSITORY: All CT scans at this facility are submitted to the National Radiology Data Registry (NRDR) Dose Index Registry (DIR) with the [employer] (ACR). RADIATION OPTIMIZATION: All CT scans at this facility use at least one of these dose optimization te chniques: automated exposure control; mA and/or kV adjustment per patient size (includes targeted exa ms where dose is matched to clinical indication); or iterative reconstruction.
--- NOTE | 2020-12-08 17:03 | W.ED.GENAD ---
Discharge Plan Disposition Patient Disposition: HOME Condition: Good Discharge Details Clinical Impression: Seizure, Fracture of nasal bone, Acute hypokalemia Primary Care Provider: Ehsan Crockett ED Provider: Tree Huynh Home Meds and New Rx's Prescriptions: New phenobarbital 97.2 mg tablet 97.2 mg PO QHS 30 Days Qty: 30 RF: 0 phenobarbital 32.4 mg tablet 32.4 mg PO DAILY 30 Days Qty: 30 RF: 0 Continued mirtazapine 30 MG tablet 30 mg PO HS RF: 0 citalopram 40 mg tablet 40 mg PO DAILY RF: 0 Discharge Instructions Instructions: Nasal Fracture (ED), Hypokalemia (ED), Recurrent Seizures in Adults (ED) Additional Instructions: At this time you are stable for discharge. As we discussed the other we will restart your phenobarbital at the previously prescribed doses that you are taking. Please take them as directed. You have been given a prescription to get filled at your pharmacy. Your potassium is slightly low, please make sure to eat foods high in potassium for the next few days. Please make sure you are drinking plenty of fluids. You should not drive, operate machinery, climb heights (such as a ladder), swim, or bathe alone or do anything else which could be dangerous if you would have another seizure. Please abide by this for the next 6 months or until cleared by a physician. If you notice any worsening of your symptoms, or any new symptoms such as vomiting, diarrhea, fever, chills, shortness of breath, chest pain, cough, numbness, weakness, or fainting , please return immediately to the emergency department for reevaluation. Please follow up with your primary care provider as soon as possible for reassessment and reevaluation. As always, it was a pleasure participating in your medical care today. Referrals: Ehsan Crockett [Primary Care Provider] - Medical Decision Making This is a 40-year-old male with a past medical history of seizures, who does not take any medications for seizures presents today for evaluation of seizure. Patient states his last seizure was 3 years ago. He was outside working on his car when he felt sleepy and lightheaded which she states is a prodrome. Witness states that he had a seizure, hit his head on a car and the toolbox. When EMS arrived the patient was 69%, he was bagged with supplemental oxygen and immediately came up to the 90s. Eventually during transport he was weaned off of all supplementation or oxygen. He had a postictal phase of around 10 minutes. Currently he is acting normal with no complaints aside from mild headache. Aside for smoking some cannabis he denies any IV or illicit drug use. He denies any alcohol use. No other complaints at this time. Exam is unremarkable, no evidence of significant trauma or neurologic deficit. Suspect that the patient is having his normal seizure, likely secondary to either mild dehydration or other idiopathic etiology. We will get a CT scan of the head neck to rule out acute process or bleed secondary to the notable fall that he took. Right now the patient functions are unremarkable, no hypoxemia or shortness of breath. No need for further pulmonary radiography. Will monitor closely and reassess. 7:20 PM Patient's laboratory work-up has returned, no white count bandemia or left shift. Minimal lymphocytosis. Patient's potassium is slightly low at 2.9, this is likely just an incidental finding. Troponin normal, EKG unchanged. CT scan of the head shows no acute process, he does have evidence of a nasal septum fracture, repeat evaluation still continues to show no evidence of nasal septal hematoma. Patient states that his nose does not hurt on bed at all. C-spine negative, c-collar removed and C-spine cleared. Chest x-ray shows a questionable small amount of atelectasis left hemidiaphragm, but is otherwise unremarkable. Patient was removed off of all oxygen, and oxygenation status remains notably stable at 97% with no intervention. Patient feels well and denies any shortness of breath whatsoever. There is a hemidiaphragm on the right which is unchanged. Patient's mediastinum is slightly enlarged secondary to technical factor of the AP x-ray, however the patient shows no clinical symptoms whatsoever of dissection or aneurysm, and these are notably clinically inconsistent with his current presentation. All pulses and neurovascular exam is normal. I had a long discussion with the patient regarding his seizure, he feels that it was because he did not drink fluids today he was out working and it was hot. His repeat neurologic exam remains normal. I did discuss restarting his previous doses of phenobarbital. He agrees with this. We will write a prescription for him to take to the pharmacy day to restart his phenobarb. Recommend close follow-up with his primary care provider Dr. Lozoya. I did speak with the patient's mother and also discussed this with her. I have extensively reviewed the treatment plan and discharge instructions with the patient. I have addressed all patient concerns at this time. The patient was made aware of what symptoms to monitor for that would warrant a return to the emergency department. Discussed the plan with the patient, they demonstrate verbal understanding and agreement with our assessment and plan at this time. The documentation in this chart was dictated using [facility] dictation software. Please excuse any dictation errors. EKG 16: 58 Rate 108, sinus tachycardia, minimal elevation in V1, and J-point elevation in V2, no evidence of STEMI. Review of EKG from 01/31/2017 demonstrates similar/identical findings FINDINGS: Brain: Normal. No hemorrhage. Unremarkable white matter. No mass effect. Cerebral ventricles: No ventriculomegaly. Bones/joints: There is a comminuted fracture at the anterior nasal septum (image 66, series 6). Paranasal sinuses: Visualized sinuses are unremarkable. No fluid levels. Mastoid air cells: Visualized mastoid air cells are well aerated. Soft tissues: Unremarkable. IMPRESSION: 1. No acute intracranial hemorrhage, mass effect or midline shift. 2. Comminuted fracture at the anterior nasal septum. FINDINGS: Bones/joints: No acute fracture. Normal alignment. Discs/Spinal canal/Neural foramina: No significant disc protrusion. No severe spinal canal stenosis. No significant neural foraminal narrowing. Lungs: Lung apices are normal. Soft tissues: Unremarkable. IMPRESSION: No acute findings. Thank you for allowing us to participate in the care of your patient. Dictated and Authenticated by: Paula Kidd MD 12/08/2020 6:32 PM Eastern Time ([place] & [place]) FINDINGS: Lungs: There is new indistinctness to the medial aspect of the left hemidiaphragm which could represent atelectasis. A small region of infection or aspiration is not excluded. Pleural spaces: No pneumothorax. Heart/Mediastinum: Normal heart size. The mediastinum is measuring slightly enlarged at 7.1 cm on this upright (normal for upright is 6 cm or less). Diaphragm: Elevation of the right hemidiaphragm, unchanged. Bones/joints: Bony structures are age-appropriate. IMPRESSION: 1. There is new indistinctness to the medial aspect of the left hemidiaphragm which could represent atelectasis. A small region of infection or aspiration is not excluded. 2. The mediastinum is measuring slightly enlarged. This may be due to technical factors. If there is clinical concern for acute mediastinal or vascular abnormality, CTA could be considered. 3. Persistent elevation of the right hemidiaphragm. Other findings/details as above. Thank you for allowing us to participate in the care of your patient. Dictated and Authenticated by: Carly Choe MD 12/08/2020 6:55 PM Eastern Time ([place] & [place]) HPI General Date/Time Provider Initiated Documentation: 12/08/20 17:01. HPI Narrative: This is a 40-year-old male with a past medical history of seizures, who does not take any medications for seizures presents today for evaluation of seizure. Patient states his last seizure was 3 years ago. He was outside working on his car when he felt sleepy and lightheaded which she states is a prodrome. Witness states that he had a seizure, hit his head on a car and the toolbox. When EMS arrived the patient was 69%, he was bagged with supplemental oxygen and immediately came up to the 90s. Eventually during transport he was weaned off of all supplementation or oxygen. He had a postictal phase of around 10 minutes. Currently he is acting normal with no complaints aside from mild headache. Aside for smoking some cannabis he denies any IV or illicit drug use. He denies any alcohol use. No other complaints at this time. Related Data Home Medications Medication Instructions Recorded Confirmed mirtazapine 30 mg PO HS 11/10/12 12/08/20 citalopram 40 mg PO DAILY 12/08/20 12/08/20 phenobarbital 32.4 mg PO DAILY 30 Days #30 tab 12/08/20 phenobarbital 97.2 mg PO QHS 30 Days #30 tab 12/08/20 Previous Rx's Medication Instructions Recorded phenobarbital 32.4 mg PO DAILY 30 Days #30 tab 12/08/20 phenobarbital 97.2 mg PO QHS 30 Days #30 tab 12/08/20 Allergies Allergy/AdvReac Type Severity Reaction Status Date / Time aspirin Allergy Intermediate Skin Rash Unverified 12/08/20 17:08 ketorolac tromethamine Allergy Unknown Unverified 12/08/20 17:08 [From Toradol] lidocaine Allergy pt reports Unverified 12/08/20 17:08 seizures tramadol AdvReac Mild stomach Unverified 12/08/20 17:08 cramps codeine AdvReac Unverified 12/08/20 17:08 ibuprofen AdvReac Nausea Unverified 12/08/20 17:08 General KELY: 4 Review of Systems All systems reviewed & are unremarkable except as noted in HPI and below PFSH Social History Smoking/Tobacco Use Status: Former Tobacco Use Smoking risk assessment performed?: Yes Alcohol Intake: never Drug use: Occasionally Substance use type: marijuana Do you feel safe at home: Yes Do you feel safe in your relationship?: Yes Exam Narrative Exam Narrative: 1.Const: Well-nourished, Well-developed, appearing stated age 2.Eyes: PERRL, no conjunctival injection, and symmetrical lids. 3.ENT: Atraumatic external nose and ears. Moist MM. Neck: Symmetric, trachea midline, No thyromegaly. There is no evidence of raccoon eyes, garcia sign, CSF rhinorrhea, mastoid tenderness, cranial crepitus, hemotympanum, exophthalmos, or hyphema. Patient demonstrates intact dentition with no signs of tooth avulsion or fracture, no signs of jaw deformity, no evidence of a LeFort's fracture, with an intact palate, nose and orbital region. There is no evidence of a nasal septal hematoma. No proptosis. Jaw closes symmetrically. Airway is clear. The patient is a dentulous, no evidence of tongue biting. 4.CVS: +S1/S2, No murmurs or gallops. Peripheral pulses 2+ and equal in all extremities. Brisk capillary refill in all extremities. 5.RESP: Unlabored respiratory effort. Clear to auscultation bilaterally. No wheezes rales or rhonchi 6.GI: Soft, Nontender/Nondistended, No hepatosplenomegaly. No guarding or rebound. Patient did not have bowel or bladder incontinence. 7.MSK: Normocephalic/Atraumatic, Extremities w/o deformity or ttp No cyanosis or clubbing, Normal movement of all extremities 8.Skin: Warm, Dry. No rashes or lesions. Notable amount of dirt is present on the patient's face secondary to landing face first in the dirt. 9.Neuro: lining folder II-XII grossly intact. Sensation grossly intact, no focal neurologic deficits. All 6 cardinal planes of vision are fully intact. No evidence of rotatory or vertical nystagmus. The patient demonstrated a normal [id number], good dexterity. There was no evidence of dysdiadochokinesia. Patient was able to ambulate without difficulty. There was no wide-based gait. Romberg testing was normal. Mfyy-no-jway testing was normal. Sensation was intact bilaterally as well as muscle strength bilaterally for all extremities. Patient was able to verbalize butter cup with no slurring, or miss pronunciation. 10.Psych: (AAO) x3. Appropriate mood and affect
[2020-12-08] MEDS: Normal Saline 1,000 ML 1000 ML IV (17:06)
[2020-12-08 17:08] LABS: Abs Immature Grans 0.02 10^3/uL (0.0-0.06); Absolute Basophil Count 0.05 10^3/uL (0.0-0.2); Absolute Eosinophil Count 0.14 10^3/uL (0.0-0.7); Absolute Monocyte Count 0.92 10^3/uL (0.1-0.8); Basophils % 0.5; Eosinophils % 1.3; HCT 43.8 % (40.0-50.0); HGB 14.5 g/dL (13.5-17.5); Immature Grans % 0.2; Lymphocytes % 41.2; MCH 28.9 pg (27.0-33.0); MCHC 33.1 % (32.0-36.0); MCV 87.4 fL (80-95); MPV 10.6 fL (8.0-11.0); Monocytes % 8.8; Nucleated RBC 0 %; Platelet Count 342 10^3/uL (130-400); RBC 5.01 10^6/uL (4.36-5.78); RDW 12.6 % (11.8-14.1); RDW-SD 40.5 fL; WBC 10.43 10^3/uL (4.4-10.8)
[2020-12-08 17:26] LABS: ALT 26 U/L (16-63); AST 21 U/L (15-37); Alkaline Phosphatase 97 U/L (46-116); Anion Gap 9.1 mmol/L (3-11); BUN 7 mg/dL (7-18); Bilirubin, Total 0.5 mg/dL (0.2-1.0); CO2 27.9 mmol/L (21.0-32.0); CREATININE 1.1 mg/dL (0.70-1.30); Calcium 8.8 mg/dL (8.5-10.1); Chloride 103 mmol/L (98-107); Glucose 173 mg/dL (74-106); Sodium 140 mmol/L (136-145); Total Protein 7.3 g/dL (6.4-8.2)
[2020-12-08 17:28] LABS: Potassium 2.9 mmol/L (3.5-5.1); Troponin I < 0.05 ng/mL (<0.06)
--- NOTE | 2020-12-08 17:34 | NUR.NOTE ---
Nursing Note: PT TO/FROM CT WITH RN. +CMS. NO ISSUES IN CT. PT REMAINS AOX4. SPEECH CLEAR. DENIES NUMB/TING TO EXT. SKIN PWD. C-COLLAR REMAINS IN PLACE. PUPILS PERRLA @3MM. SINUS TACH ON MONITOR. 99% ON 2L NC.
--- NOTE | 2020-12-08 17:45 | DI.RAD_ITS ---
Exam(s) XR PORTABLE CHEST AP EXAM: XR PORTABLE CHEST AP CLINICAL HISTORY: sob after seizure, eval for aspiration. TECHNIQUE: 2D digital imaging was performed. COMPARISON: CT CHEST ABD PELVIS WITH CONTRAST from 01/31/2017 FINDINGS: Heart size is normal. The mediastinum is not widened. Left lung is clear. Mild increased markings noted in the mid aspect of the right lung although there is overlying scapula at this level. There are no pleural effusions. There is no pneumothorax. IMPRESSION: Subtle right mid lung findings. Recommend nonportable PA and lateral views when clinically possible. DATA REPOSITORY: RADIATION DOSE DELIVERED: All CT scans at this facility use at least one of these dose optimization techniques: automated exposure control; mA and/or kV adjustment per patient size (includes targeted e xams where dose is matched to clinical indication); or iterative reconstruction.
[2020-12-08] MEDS: Potassium Chloride 20 MEQ TABCR 40 MEQ PO (17:52)
[2020-12-08] MEDS: POTASSIUM CHLORIDE 10 MEQ/100 ML BAG 100 MEQ IVPB (17:52)
--- NOTE | 2020-12-08 18:32 | DI.VRAD_ITS ---
PROCEDURE INFORMATION: Exam: CT Head Without Contrast Exam date and time: 12/08/2020 5:14 PM Age: 40 years old Clinical indication: Pain; Fall hit head seizure TECHNIQUE: Imaging protocol: Computed tomography of the head without contrast. Radiation optimization: All CT scans at this facility use at least one of these dose optimization techniques: automated exposure control; mA and/or kV adjustment per patient size (includes targeted exams where dose is matched to clinical indication); or iterative reconstruction. COMPARISON: CT HEAD WITHOUT CONTRAST 01/31/2017 3:56 PM FINDINGS: Brain: Normal. No hemorrhage. Unremarkable white matter. No mass effect. Cerebral ventricles: No ventriculomegaly. Bones/joints: There is a comminuted fracture at the anterior nasal septum (image 66, series 6). Paranasal sinuses: Visualized sinuses are unremarkable. No fluid levels. Mastoid air cells: Visualized mastoid air cells are well aerated. Soft tissues: Unremarkable. IMPRESSION: 1. No acute intracranial hemorrhage, mass effect or midline shift. 2. Comminuted fracture at the anterior nasal septum. PROCEDURE INFORMATION: Exam: CT Cervical Spine Without Contrast Exam date and time: 12/08/2020 5:14 PM Age: 40 years old Clinical indication: Pain; Other: Fall hit head seizure TECHNIQUE: Imaging protocol: Computed tomography images of the cervical spine without contrast. COMPARISON: CT HEAD WITHOUT CONTRAST 01/31/2017 3:56 PM FINDINGS: Bones/joints: No acute fracture. Normal alignment. Discs/Spinal canal/Neural foramina: No significant disc protrusion. No severe spinal canal stenosis. No significant neural foraminal narrowing. Lungs: Lung apices are normal. Soft tissues: Unremarkable. IMPRESSION: No acute findings. Dictated and Authenticated by: Paula Melo MD. Ordering:JAMESON Leavitt MD
--- NOTE | 2020-12-08 18:56 | DI.VRAD_ITS ---
Addendum created by Carly Choe MD on 12/08/2020 6:58:40 PM EDT: THIS REPORT CONTAINS FINDINGS THAT MAY BE CRITICAL TO PATIENT CARE. The findings were verbally communicated via telephone conference with DARIEN FELIX at 6:58 PM EDT on 12/08/2020. The findings were acknowledged and understood. Initial report created on 12/08/2020 6:55:53 PM EDT: PROCEDURE INFORMATION: Exam: XR Chest Exam date and time: 12/08/2020 5:55 PM Age: 40 years old Clinical indication: Pain; Other: SOB after seizure eval for aspiration TECHNIQUE: Imaging protocol: XR of the chest. Views: 1 view. COMPARISON: CT CHEST ABD PELVIS WITH CONTRAST 01/31/2017 3:59 PM FINDINGS: Lungs: There is new indistinctness to the medial aspect of the left hemidiaphragm which could represent atelectasis. A small region of infection or aspiration is not excluded. Pleural spaces: No pneumothorax. Heart/Mediastinum: Normal heart size. The mediastinum is measuring slightly enlarged at 7.1 cm on this upright (normal for upright is 6 cm or less). Diaphragm: Elevation of the right hemidiaphragm, unchanged. Bones/joints: Bony structures are age-appropriate. IMPRESSION: 1. There is new indistinctness to the medial aspect of the left hemidiaphragm which could represent atelectasis. A small region of infection or aspiration is not excluded. 2. The mediastinum is measuring slightly enlarged. This may be due to technical factors. If there is clinical concern for acute mediastinal or vascular abnormality, CTA could be considered. 3. Persistent elevation of the right hemidiaphragm. Other findings/details as above. Dictated and Authenticated by: Carly Choe MD. Ordering:JAMESON Leavitt MD
== END 2020-12-08 19:15 | disposition home or self-care (01) ==
PROVIDERS: Emergency Provider Student in an Organized Health Care Education/Training Program; PCP Family Medicine
DX: G40.409 Other generalized epilepsy and epileptic syndromes, not intractable, without status epilepticus (principal); S02.2XXA Fracture of nasal bones, initial encounter for closed fracture; E87.6 Hypokalemia; W22.09XA Striking against other stationary object, initial encounter
CPT/HCPCS: 80053; 93005; 96365; 99285; 70450; 71045; 72125; 84484; 85025; 93010; 99284; J3480

== ENCOUNTER 2021-01-14 18:24 | Outpatient (REF) | payer MEDICAID, SELFPAY ==
[2021-01-14 19:41] LABS: Anion Gap 7.6 mmol/L (3-11); BUN 8 mg/dL (7-18); CO2 29.4 mmol/L (21.0-32.0); CREATININE 0.9 mg/dL (0.70-1.30); Calcium 9.1 mg/dL (8.5-10.1); Chloride 104 mmol/L (98-107); Glucose 98 mg/dL (74-106); PHENOBARBITAL 23.4 ug/mL (15.0-40.0); Potassium 4.8 mmol/L (3.5-5.1); Sodium 141 mmol/L (136-145)
== END 2021-01-14 18:25 | disposition home or self-care (01) ==
LOC: NCHCN 18:24
PROVIDERS: PCP Family Medicine; Visit Provider Family Medicine
DX: E87.6 Hypokalemia (principal); R56.9 Unspecified convulsions; Z51.81 Encounter for therapeutic drug level monitoring
CPT/HCPCS: 80048; 80184; 83735

== ENCOUNTER 2021-02-19 07:30 | Emergency (ER) | payer MEDICAID, SELFPAY ==
[2021-02-19] VITALS (25 sets, daily range): BP systolic 87–107; BP diastolic 54–78; PULSE 64–94; RESP 12–22; TEMP 36.7; O2SAT 96–100
[2021-02-19] MEDS: Normal Saline 500 ML IV (07:30)
--- NOTE | 2021-02-19 07:30 | RT.EKG_ITS ---
APPROVED REPORT Exam: Resting ECG Reason for Exam: seizure Patient Location: E HR:89 bpm ECG Measurements Heart Rate 89 AXIS DC 148 P 66 QRSd 94 QRS 73 QT 348 T 57 QTc 425 Conclusion Sinus rhythm...normal P axis, V-rate 60- 99 ST elevation suggests acute pericarditis...ST >0.10mV, ant/lat/inf Physician: no stemi.
--- NOTE | 2021-02-19 07:30 | DI.CT_ITS ---
Exam(s) CT HEAD WO EXAM: CT HEAD WO CLINICAL HISTORY: seizure. TECHNIQUE: Imaging Protocol: Axial computed tomography images with coronal and sagittal reformatted images were created and reviewed COMPARISON: CT CT HEAD CERVICAL SPINE WO from 12/08/2020 FINDINGS: Ventricles and Extra axial spaces: Normal in size and morphology for the patient's age. Hemorrhage: None. Cerebral parenchyma: Normal. Midline shift: None. Brainstem/Cerebellum: Normal. Calvarium: Normal. Visualized Paranasal sinuses/Mastoids: Clear. Soft Tissues: Unremarkable. IMPRESSION: No acute intracranial process. RADIATION DOSE DELIVERED: 708.83mGy.cm Total DLP DATA REPOSITORY: All CT scans at this facility are submitted to the National Radiology Data Registry (NRDR) Dose Index Registry (DIR) with the [employer] ([employer]). RADIATION OPTIMIZATION: All CT scans at this facility use at least one of these dose optimization te chniques: automated exposure control; mA and/or kV adjustment per patient size (includes targeted exa ms where dose is matched to clinical indication); or iterative reconstruction.
--- NOTE | 2021-02-19 07:33 | DI.RAD_ITS ---
Exam(s) XR CHEST 1V IN DI DEPT EXAM: XR CHEST 1V IN DI DEPT CLINICAL HISTORY: seizure TECHNIQUE: 2D digital imaging was performed. COMPARISON: No exams were available for comparison FINDINGS: LUNGS: Clear. No pleural abnormality seen. HEART: Normal. MEDIASTINUM: Normal. BONES: Unremarkable. IMPRESSION: No acute pulmonary findings. DATA REPOSITORY: RADIATION DOSE DELIVERED:
--- NOTE | 2021-02-19 07:36 | ED.GENADUL_ITS ---
Discharge Plan Disposition Patient Disposition: HOME Condition: Stable Discharge Details Clinical Impression: Seizure Primary Care Provider: Ehsan Crockett ED Provider: Mike Lacy Home Meds and New Rx's Prescriptions: Continued cholecalciferol (vitamin D3) 25 mcg (1,000 unit) capsule 25 mcg PO DAILY RF: 0 phenobarbital 32.4 mg tablet 32.4 mg PO DAILY RF: 0 phenobarbital 97.2 mg tablet 97.2 mg PO QHS RF: 0 mirtazapine 30 MG tablet 30 mg PO HS RF: 0 citalopram 40 mg tablet 40 mg PO DAILY RF: 0 Discharge Instructions Instructions: Recurrent Seizures in Adults (ED) Additional Instructions: do not operate heavy machinery or swim/bathe by yourself until you follow up with neurology if you have recurrent seizures, feel more ill, fevers or difficulty breathing return to the emergency department Medical Decision Making <Tree Huynh DO - Last Filed: 02/19/21 07:50> This is a 40-year-old male with a past medical history of seizures as well as noncompliance with seizure medication in the past who presents today for evaluation of seizure. About 30 minutes prior to arrival the patient was found to be having a seizure. Uncertain as to how long he was having a seizure for. EMS was called, and upon their arrival he had transition to a postictal state, likely thereafter he had 4 subsequent episodes of tonic-clonic seizures. He was monitored during all of these. He was lowered to the ground carefully and never had any trauma to his head. Because of these repeat seizures he was given 10 mg of Versed, and this stopped his seizures and he was brought to the ER for further assessment. Glucose stable, vital signs stable. Patient oxygenating well on his own. Of note the person who is with him did state that she had some pills missing from her 300 mg gabapentin bottle. Also of historical note the last time patient was here in the ED 2-1/2 months ago, he had a seizure then which was his first seizure in 5 years. I restarted him on phenobarbital at that time which was his previously prescribed antiepileptic medication. No other historical factors at this time secondary to the patient's postictal state. Physical exam demonstrates no evidence of clonus or hyperreflexia. No evidence of fever. Concern is for noncompliance of medications and potential seizure versus potential overdose from gabapentin. No indication for intubation at this time. We will get a CT scan, labs, rehydrate, loaded with 2 g of Keppra, monitor closely and reassess. Case will be signed out to my colleague Mike Lacy for follow-up on labs imaging and reassessment. <Mike Lacy MD - Last Filed: 02/19/21 10:33> Pt remains hemodynamically stable and is slowly becoming more awake, will respond to some questions and localizes painful stimuli. Labs unremarkable other than lactate over 6 which likely fits with his tonic clonic seizures, will recheck after IVF. Discussed with his mother who he lives with. She states he was awake and felt fine and had no complaints and his friend is the one found him seizing in the house. No recent fevers or trauma. Will reassess after repeat lactate. He did test postive for thc, barbituates which is likely from the phenobarbital and also tested for benzos but was given valium with ems pt now up and ambulatory on his own with normal gait, caox4. Denies any si/hi and denies any illicit drug use other than marijuana. His mother denies any concern for other drug use and she lives with him. Will discuss with neurology if they would recommend any seizure medication changes. He was offered admission for observation which he declines at this time. patient declining to stay for neurology consult and has capacity to make his own decisions and states he has a follow up appointment with neurology. He was instructed to stop using marijuana and given seizure precautions and also return precautions Imaging Data Radiologic Study: Attestation: I personally reviewed and interpreted this imaging study as follows: Imaging: CT Scan Radiologist's impression: IMPRESSION: No acute intracranial process. Radiologic Study #2: Attestation: I personally reviewed and interpreted this imaging study as follows: Imaging: X-Ray Radiologist's impression: no acute findings Lab Data Lab results reviewed: Yes I reviewed the patient's lab results. HPI <Tree Huynh DO - Last Filed: 02/19/21 07:50> General Date/Time Provider Initiated Documentation: 02/19/21 07:32 . HPI Narrative: This is a 40-year-old male with a past medical history of seizures as well as noncompliance with seizure medication in the past who presents today for evaluation of seizure. About 30 minutes prior to arrival the patient was found to be having a seizure. Uncertain as to how long he was having a seizure for. EMS was called, and upon their arrival he had transition to a postictal state, likely thereafter he had 4 subsequent episodes of tonic-clonic seizures. He was monitored during all of these. He was lowered to the ground carefully and never had any trauma to his head. Because of these repeat seizures he was given 10 mg of Versed, and this stopped his seizures and he was brought to the ER for further assessment. Glucose stable, vital signs stable. Patient oxygenating well on his own. Of note the person who is with him did state that she had some pills missing from her 300 mg gabapentin bottle. Also of historical note the last time patient was here in the ED 2-1/2 months ago, he had a seizure then which was his first seizure in 5 years. I restarted him on phenobarbital at that time which was his previously prescribed antiepileptic medication. No other historical factors at this time secondary to the patient's postictal state. Related Data Home Medications Medication Instructions Recorded Confirmed mirtazapine 30 mg PO HS 11/10/12 02/19/21 citalopram 40 mg PO DAILY 12/08/20 02/19/21 cholecalciferol (vitamin D3) 25 25 mcg PO DAILY 01/16/21 02/19/21 mcg (1,000 unit) capsule phenobarbital 32.4 mg tablet 32.4 mg PO DAILY 01/16/21 02/19/21 phenobarbital 97.2 mg tablet 97.2 mg PO QHS 01/16/21 02/19/21 Allergies Allergy/AdvReac Type Severity Reaction Status Date / Time aspirin Allergy Intermediate Skin Rash Unverified 02/19/21 07:43 ketorolac tromethamine Allergy Unknown Unverified 02/19/21 07:43 [From Toradol] lidocaine Allergy pt reports Unverified 02/19/21 07:43 seizures tramadol AdvReac Mild stomach Unverified 02/19/21 07:43 cramps codeine AdvReac Unverified 02/19/21 07:43 ibuprofen AdvReac Nausea Unverified 02/19/21 07:43 General KELY: 2 Review of Systems <Tree Huynh DO - Last Filed: 02/19/21 07:50> All systems reviewed & are unremarkable except as noted in HPI and below PFSH <Tree Huynh DO - Last Filed: 02/19/21 07:50> Medical History Blurred vision Degenerative joint disease (DJD) of lumbar spine History of IBS Hx of scrotal mass Hypokalemia Intellectual disability Major depression, recurrent, chronic PTSD (post-traumatic stress disorder) Seizure disorder Social History Smoking/Tobacco Use Status: Former Tobacco Use Smoking risk assessment performed?: Yes Alcohol Intake: never Drug use: Occasionally Substance use type: marijuana Do you feel safe at home: Yes Do you feel safe in your relationship?: Yes Exam <Tree Huynh DO - Last Filed: 02/19/21 07:50> Narrative Exam Narrative: 1.Const: Well-nourished, Well-developed, appearing stated age 2.Eyes: PERRL, no conjunctival injection, and symmetrical lids. No pinpoint pupils 3.ENT: Atraumatic external nose and ears. Moist MM. Neck: Symmetric, trachea midline, No thyromegaly. Gag reflex intact. 4.CVS: +S1/S2, No murmurs or gallops. Peripheral pulses 2+ and equal in all extremities. Brisk capillary refill in all extremities. 5.RESP: Unlabored respiratory effort. Clear to auscultation bilaterally. No wheezes rales or rhonchi 6.GI: Soft, Nontender/Nondistended, No hepatosplenomegaly. No guarding or rebound. 7.MSK: Normocephalic/Atraumatic, Extremities w/o deformity or ttp No cyanosis or clubbing, patient currently in postictal state. DTRs intact. No clonus. Patellar reflexes +1 bilaterally 8.Skin: Warm, Dry. No rashes or lesions. 9.Neuro: Currently in a postictal state. Please see musculoskeletal 10.Psych: Currently in a postictal state Sign Out <Tree Huynh DO - Last Filed: 02/19/21 07:50> Sign Out Data: Sign Out Comment: Follow-up on labs and imaging Last updated by Tree Huynh DO at 02/19/21 07:52
[2021-02-19 07:44] LABS: Abs Immature Grans 0.02 10^3/uL (0.0-0.06); Absolute Basophil Count 0.06 10^3/uL (0.0-0.2); Absolute Eosinophil Count 0.08 10^3/uL (0.0-0.7); Absolute Lymphocyte Count 3.41 10^3/uL (1.2-3.4); Absolute Monocyte Count 0.84 10^3/uL (0.1-0.8); Absolute Neutrophil Count 5.05 10^3/uL (1.2-6.7); Basophils % 0.6; Eosinophils % 0.8; HCT 47.1 % (40.0-50.0); HGB 15.3 g/dL (13.5-17.5); Immature Grans % 0.2; MCH 28.9 pg (27.0-33.0); MCHC 32.5 % (32.0-36.0); MCV 88.9 fL (80-95); MPV 9.9 fL (8.0-11.0); Monocytes % 8.9; Neutrophils % 53.5; Nucleated RBC 0 %; Platelet Count 323 10^3/uL (130-400); RDW 13.3 % (11.8-14.1); RDW-SD 43.9 fL; WBC 9.46 10^3/uL (4.4-10.8)
[2021-02-19 07:46] LABS: Lactate 6.7 mmol/L (0.6-1.4)
[2021-02-19] MEDS: levETIRAcetam 2,000 MG in Normal Saline 100 ML 400 MG IVPB (08:01)
[2021-02-19 08:03] LABS: Salicylate < 2.8 mg/dL (<2.8)
[2021-02-19 08:04] LABS: Acetaminophen < 2 ug/mL (10-30)
[2021-02-19 08:09] LABS: ALT 28 U/L (16-63); AST 17 U/L (15-37); Albumin 4.2 g/dL (3.4-5.0); Alkaline Phosphatase 105 U/L (46-116); Anion Gap 13.6 mmol/L (3-11); BUN 13 mg/dL (7-18); Bilirubin, Total 0.2 mg/dL (0.2-1.0); CO2 24.4 mmol/L (21.0-32.0); CREATININE 1.2 mg/dL (0.70-1.30); Chloride 104 mmol/L (98-107); Creatine Kinase 94 U/L (39-308); Glucose 108 mg/dL (74-106); Potassium 3.6 mmol/L (3.5-5.1); Sodium 142 mmol/L (136-145); TSH (W/Ref FT4) 2.94 uIU/mL (0.36-3.74); Total Protein 7.8 g/dL (6.4-8.2)
[2021-02-19 08:21] LABS: ETHANOL BLOOD < 3.0 mg/dL (<3)
[2021-02-19] MEDS: Lidocaine 2% Jelly 6 ML SYR (08:35)
[2021-02-19] MEDS: Normal Saline 1,000 ML 1000 ML IV (08:47)
[2021-02-19 08:51] LABS: Bilirubin Negative (Negative); Blood Negative (Negative); Clarity Clear (Clear); Glucose Negative (Negative); Ketones Negative (Negative); Leukocyte Esterase Negative (Negative); Nitrite Negative (Negative); Specific Gravity >= 1.030 (1.005-1.025); Urobilinogen 0.2 EU/dL (Up TO 0.2)
[2021-02-19 08:58] LABS: *AMPHETAMINES SCREEN URINE Negative (Negative); *BARBITURATES SCREEN URINE Positive (Negative); *BENZODIAZEPINES SCREEN URINE Positive (Negative); Cannabinoids THC Positive (Negative); Cocaine Screen,Urine Negative (Negative); METHADONE URINE SCREEN Negative (Negative); OPIATES URINE SCREEN Negative (Negative)
[2021-02-19 08:59] LABS: Tricyclic Antidepressants Negative (Negative)
[2021-02-19 09:00] LABS: Epithelial Cells Rare HPF (Negative); RBC 0-2 HPF (0-2)
[2021-02-19 09:01] LABS: Bacteria Negative HPF (Negative); C & S Indicated? No; Casts Negative LPF (Negative); Crystals Negative HPF (Negative); Mucus Heavy (Negative)
[2021-02-19 09:26] LABS: PHENOBARBITAL 28.3 ug/mL (15.0-40.0)
[2021-02-19 09:45] LABS: COVID-19 PCR Negative (Negative)
--- NOTE | 2021-02-19 09:51 | NUR.NOTE ---
Patient sleeping wakes easily. Able to answer questions appropriately.
--- NOTE | 2021-02-19 10:02 | RESPIRATORY ---
02/19/21-Pt arrived via [facility] for seizure activity. Pt was placed on ETCO2 NC with 2 LPM as Pt's SPO2 was dipping in the low 90's. Suction set up at head of the bed.
--- NOTE | 2021-02-19 10:22 | NUR.NOTE ---
Patient ambulated without difficulty. Drinking coffee and conversive.
--- NOTE | 2021-02-19 10:49 | NUR.NOTE ---
Nursing Note: Referral faxed to [facility] for seizures, to get an appt. earlier than Apr. Katerin Quach After discharge, the provider did speak with Dr. Bejarano. Katerin Quach
== END 2021-02-19 10:40 | disposition home or self-care (01) ==
PROVIDERS: Student in an Organized Health Care Education/Training Program; Emergency Provider Emergency Medicine; PCP Family Medicine
DX: G40.409 Other generalized epilepsy and epileptic syndromes, not intractable, without status epilepticus (principal); Z91.14 Patient's other noncompliance with medication regimen
CPT/HCPCS: 80053; 80307; 82550; 87635; 93005; 96361; 96365; 99284; 70450; 71045; 80184; 80320; 80329; 81003; 81015; 83605; 84443; 85025; 93010; J1953

== ENCOUNTER 2021-02-19 13:47 | Emergency (ER) | payer MEDICAID, SELFPAY ==
[2021-02-19] VITALS (12 sets, daily range): BP systolic 116–124; BP diastolic 73–86; PULSE 68–100; RESP 14–19; TEMP 37.1; O2SAT 96–100
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
[2021-02-19] MEDS: LORazepam 2 MG/ML VIAL (14:27)
[2021-02-19] MEDS: Haloperidol 5 MG/ML VIAL (14:27)
--- NOTE | 2021-02-19 14:30 | NUR.NOTE ---
1414 Patient getting out of bed stating I am leaving and you can't stop me. Patient walking out of room very unsteady this designer writer and [facility] ED [employer]s. assisting to prevent patient from falling. Patient became argumentative yelling at staff. Stating you can't stop me. Code Robby called. Patient expressed wanting to upon arrival to ED. 1424 Patient resisting staff kicking and swinging at staff. [employer] on seen patient restrained and ,medicated order with Haldol 5mg IM in left thigh and 2mg Ativan right thigh. 1436 worker in room.
--- NOTE | 2021-02-19 15:33 | NUR.NOTE ---
patient ate sandwich and drink fluids. wants to call mother. Nursing Note:
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
--- NOTE | 2021-02-19 16:02 | NUR.NOTE ---
patient drinking fluids, ambulating unsteadily, patient accepted assistance. patient currently laying down. Patient called his mother and was calm during conversation. Nursing Note:
--- NOTE | 2021-02-19 16:15 | NUR.NOTE ---
patient ambulated steadily, patient calling for ride. Nursing Note:
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
== END 2021-02-19 16:33 | disposition home or self-care (01) ==
PROVIDERS: Emergency Provider Emergency Medicine; PCP Family Medicine
DX: R45.1 Restlessness and agitation (principal)
CPT/HCPCS: 96372; 99285; 99284; J1630; J2060

== ENCOUNTER 2021-03-15 00:56 | Outpatient (CLI) | payer MEDICAID, SELFPAY ==
--- NOTE | 2021-03-18 14:54 | PDOC.EEG ---
Neurology EEG EEG: [facility] Department of Neurology LONG-TERM AMBULATORY EEG REPORT Date of Recordin03/15/21 at 13:23:49 to 03/16/21 at 12:06:31 Interpreting Physician: Dr. Ruthie Bejarano PCP/Referring Provider: Dr. Ehsan Crockett Reason for study: Mr. Morton is a 40 year-old man with cognitive developmental delay prior seizures who had recent recurrences with events concerning for both epileptic and non-epileptic seizures. Current Medications: Home Medications Medication Instructions Recorded Confirmed Type mirtazapine 30 mg PO HS 11/10/12 03/05/21 History citalopram 40 mg PO DAILY 12/08/20 03/05/21 History cholecalciferol (vitamin D3) 25 25 mcg PO DAILY 01/16/21 03/05/21 History mcg (1,000 unit) capsule phenobarbital 32.4 mg tablet 32.4 mg PO DAILY 01/16/21 03/05/21 History phenobarbital 97.2 mg tablet 97.2 mg PO QHS 01/16/21 03/05/21 History clonazepam 0.5 mg disintegrating 0.5 mg PO DAILY PRN #7 tab 03/05/21 03/05/21 Rx tablet topiramate 50 mg tablet See Rx Instructions PO BID #120 tab 03/05/21 03/05/21 Rx METHODS: An 18-channel digitized electroencephalogram was recorded in the ambulatory setting with video. The 10/20 international system of electrode placement was used and bipolar and referential electrode montages were recorded. In addition to EEG the patient was monitored for EKG and by video. Activation procedures of photic stimulation and hyperventilation were performed if applicable. The duration of the recording was ~23 hours. DESCRIPTION OF EEG: Waking background activity: During maximal wakefulness an 8.5-Hz posterior background rhythm was present which was well-modulated, symmetrical, reactive to eye opening, and of moderate voltage. Faster frequencies were present in the bilateral anterior head regions. There was a normal anterior-posterior voltage gradient. Drowsy and sleeping background activity: During drowsiness, there was attenuation of the posterior dominant background rhythm and vertex waves. Normal stage II and III sleep was present with symmetrical sleep spindles, K-complexes, and vertex waves with slowing of the background rhythm to delta/theta frequencies. REM sleep manifested by rapid lateral eye movements and faster background rhythms was recorded. Arousal was unremarkable. Interictal abnormalities: There was generalized, polymorphic, moderate-amplitude delta and theta slowing throughout. During sleep particularly, there were occasional focal sharps seen primarily at T3 and O2 but occurring anywhere. These were not clearly epileptic. Ictal findings: No events recorded. Activating Procedures: Photic stimulation was performed which produced no posterior driving response. Hyperventilation was not performed. EKG: EKG revealed normal sinus rhythm. INTERPRETATION: This long-term EEG is abnormal due to: #1. Mild generalized slowing with borderline slow PDR. #2. Non-specific focal sharp-waves, primarily in sleep. PRIOR EEG: -EEG (2003 at [facility] [place] mild non-specific abnormalities CLINICAL CORRELATION: No focal regions of cerebral dysfunction or definite epileptiform activity was present. The background/generalized slowing is suggestive of a mild diffuse cerebral encephalopathy of broad differential. This could be due to his underlying cognitive development but also could be due to a more diffuse toxic-metabolic etiology - specifically phenobarbital which he is currently weaning. The focal sharp-waves are not specific and likely what was seen on previous EEG. Epilepsy remains a clinical diagnosis and a normal EEG does not rule out epilepsy. Clinical correlation is advised. Ruthie Bejarano MD
== END 2021-03-15 00:57 | disposition home or self-care (01) ==
LOC: RT 00:56
PROVIDERS: PCP Family Medicine; Visit Provider Psychiatry & Neurology Neurology
DX: R41.840 Attention and concentration deficit (principal)
CPT/HCPCS: 95714

== ENCOUNTER 2021-03-21 01:13 | Outpatient (CLI) | payer MEDICAID, SELFPAY ==
--- NOTE | 2021-03-21 08:30 | DI.MRI_ITS ---
Exam(s) MR BRAIN WO EXAM: MR BRAIN WO CLINICAL HISTORY: new onset seizures after period of remission,EPILEPSY,G40.909,F/U 2002 TECHNIQUE: Multiplanar multisequence MRI of the brain was performed. COMPARISON: CT CT HEAD WO from 02/19/2021 FINDINGS: CEREBRAL PARENCHYMA: There is no evidence of intracranial hemorrhage, mass effect, or shift of midline structures. There are no extra-axial fluid collections. Ventricles are not enlarged or shifted. There is no significant focal signal abnormality in the cerebellar hemispheres nor within the devin, m idbrain, and thalami. There is no abnormal signal abnormality in the periventricular white matter. There is no significant focal signal abnormality evident on diffusion imaging to suggest acute ischem ic event. PITUITARY GLAND: No mass nor parasellar abnormality. No obvious abnormality in the cavernous sinuses. FLOW VOIDS: The expected flow void are noted. No evidence of obvious aneurysm nor obvious vascular ma lformation. PARANASAL SINUSES: The visualized paranasal sinuses appear unremarkable. No obvious finding ORBITS: No obvious findings. IMPRESSION: No significant intracranial findings on this noninfused MRI scan of the brain. DATA REPOSITORY:
== END 2021-03-21 01:33 ==
PROVIDERS: PCP Family Medicine; Visit Provider Psychiatry & Neurology Neurology
DX: G40.909 Epilepsy, unspecified, not intractable, without status epilepticus (principal)
CPT/HCPCS: 70551

== ENCOUNTER 2021-11-28 09:29 | Emergency (ER) | payer MEDICAID, SELFPAY ==
[2021-11-28 09:32] VITALS: BP 143/94; PULSE 116; RESP 18; TEMP 37.7; O2SAT 98
--- NOTE | 2021-11-28 09:45 | DI.RAD_ITS ---
Exam(s) XR HAND LT COMPLETE EXAM: XR HAND LT COMPLETE CLINICAL HISTORY: palmar puncture wound- concern for FB and infectio TECHNIQUE: COMPARISON: CR RIGHT HAND COMPLETE from 03/27/2017 FINDINGS: Three views were obtained. There is no evidence of acute fracture or dislocation. No gross foreign body seen. IMPRESSION: RADIATION DOSE DELIVERED: Total DLP
--- NOTE | 2021-11-28 09:55 | W.ED.GENAD ---
Discharge Plan Disposition Patient Disposition: AGAINST MEDICAL ADVICE Condition: Poor Discharge Details Clinical Impression: Tenosynovitis, Cellulitis of hand, left Primary Care Provider: Ehsan Crockett ED Provider: Dayne Clarke Home Meds and New Rx's Prescriptions: New amoxicillin-pot clavulanate 875-125 mg tablet 1 tab PO BID 7 Days Qty: 14 0RF Continued topiramate 50 mg tablet See Rx Instructions PO BID Qty: 120 5RF Rx Instructions: 50mg HS x1wk, then 100mg HS x1 wk, then 50am and 100mg HS x 1wk, then 100mg BID thereafter PO twice a day; clonazepam 0.5 mg tablet,disintegrating 0.5 mg PO DAILY PRN (Reason: seizure) Qty: 7 0RF Rx Instructions: Place inside cheek for seizure >[address] 2nd if still seizing after 7min. If still seizing at 10min, call 911. cholecalciferol (vitamin D3) 25 mcg (1,000 unit) capsule 25 mcg PO DAILY 0RF phenobarbital 97.2 mg tablet 97.2 mg PO QHS 0RF mirtazapine 30 MG tablet 30 mg PO HS 0RF citalopram 40 mg tablet 40 mg PO DAILY 0RF Discharge Instructions Instructions: Cellulitis (ED), Tenosynovitis (ED) Additional Instructions: You have chosen today to leave AGAINST MEDICAL ADVICE which was recommended admission for further IV antibiotics. If you change your mind at any point please return immediately to the emergency department as we are happy to reevaluate you and reconsider admission. 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 If you have any new or significant worsening of symptoms please return immediately to the emergency department for reassessment and highly probable admission to the hospital. Referrals: Evans Alves MD [ [facility] STAFF PHYSICIAN] - 1 day Discharge Data Discharge Date/Time-TO BE ENTERED AT DEPARTURE: 11/28/21 14:02 Medical Decision Making Patient presenting the emergency department for chief complaint of puncture wound to left palm. Patient states he was helping a friend with [employer] work and felt that he may have punctured his hand picking up leaves with a nail. Patient states over the last couple days he has noticed increased swelling and discomfort to his left hand. Patient denies all other symptoms. Physical exam shows significant swelling to left hand with palmar puncture wound. Patient has significant decrease of flexion and extension to middle finger with positive Kanavel's Signs. Plan to check labs including blood cultures ESR and CRP and perform plain film imaging. After cultures are drawn will start antibiotics for concern of tenosynovitis. Tetanus is up-to-date No radiopaque foreign body is noted no signs of fracture or dislocation. Labs show elevation of WBCs with shift. Lactate is 1.6 and elevated alk phos. ESR is 14 but CRP is elevated to 4.78. Labs otherwise nondiagnostic. Still pending blood cultures. Inform patient that I would recommend admission for tenosynovitis given the significant infection of the left hand and tendon involvement. Patient is hesitant to stay in the hospital and discussed risk versus benefit with the patient. Patient is agreeable to stay for IV antibiotics in the emergency department pending consult with Ortho which was paged. Orthopedist is currently in surgery and gave report to OR nurse. Spoke to Dr. Alves and informed them that patient is unwilling for inpatient admission. We will plan on patient signing AMA paperwork but continuing Augmentin on outpatient basis with 1 day follow-up to orthopedic office. Patient is agreeable to this plan and also states understanding that he may return to the emergency department at any point if he changes his mind in regards to admission. After discussion of diagnosis and plan of care patient has no further needs, questions, or concerns and states clear understanding to return to the emergency department for any worsening symptoms. Imaging Data Radiologic Study: Imaging: X-Ray Radiologist's impression: Three views were obtained. There is no evidence of acute fracture or dislocation. No gross foreign body seen. HPI General Mode of arrival: ambulatory. Date/Time Provider Initiated Documentation: 11/28/21 09:30. Limitations to Documentation: no limitations. Information obtained by: RN notes reviewed. History of Present Illness 41 year old M presents to the emergency department with the chief complaint of Left hand puncture wound with swelling, described as moderate, with intensity rated at 8. Quality is described as aching, and is localized to the left and upper extremity. Patient reports no radiation. Patient started experiencing this day(s) (3) and it has been constant. improves with No relieving factors improve symptom(s), No exacerbating factors reported . Patient notes no other symptoms.. Patient did receive the following treatments prior to arrival, NSAID Related Data Home Medications Medication Instructions Recorded Confirmed mirtazapine 30 mg tablet 30 mg PO HS 11/10/12 11/29/21 citalopram 40 mg tablet 40 mg PO DAILY 12/08/20 11/29/21 cholecalciferol (vitamin D3) 25 25 mcg PO DAILY 01/16/21 11/29/21 mcg (1,000 unit) capsule phenobarbital 97.2 mg tablet 97.2 mg PO QHS 01/16/21 11/29/21 clonazepam 0.5 mg disintegrating 0.5 mg PO DAILY PRN #7 tab 03/05/21 11/29/21 tablet topiramate 50 mg tablet See Rx Instructions PO BID #120 tab 03/05/21 11/29/21 amoxicillin 875 mg-potassium 1 tab PO BID 7 Days #14 tab 11/28/21 11/29/21 clavulanate 125 mg tablet Previous Rx's Medication Instructions Recorded clonazepam 0.5 mg disintegrating 0.5 mg PO DAILY PRN #7 tab 03/05/21 tablet topiramate 50 mg tablet See Rx Instructions PO BID #120 tab 03/05/21 amoxicillin 875 mg-potassium 1 tab PO BID 7 Days #14 tab 11/28/21 clavulanate 125 mg tablet Allergies Allergy/AdvReac Type Severity Reaction Status Date / Time aspirin Allergy Intermediate Skin Rash Unverified 11/29/21 10:14 ketorolac tromethamine Allergy Unknown Unverified 11/29/21 10:14 [From Toradol] lidocaine Allergy pt reports Unverified 11/29/21 10:14 seizures tramadol AdvReac Mild stomach Unverified 11/29/21 10:14 cramps codeine AdvReac Unverified 11/29/21 10:14 ibuprofen AdvReac Nausea Unverified 11/29/21 10:14 General Stated Complaint: Cellulitis KELY: 3 Review of Systems Constitutional Constitutional: Denies body ache(s), Reports chills and Denies fever(s) Cardiovascular Cardiovascular: Denies chest pain and Denies dyspnea Respiratory Respiratory: Denies dyspnea Gastrointestinal Gastrointestinal: Denies abdominal pain, Denies nausea and Denies vomiting Musculoskeletal Musculoskeletal: Reports as per HPI and Reports limited range of motion Integumentary/Breasts Skin/Breast: Reports as per HPI, Reports erythema, Denies rash, Reports skin swelling and Reports wounds Neurologic Neurologic: Denies confusion and Denies sensory deficit Psychiatric Psychiatric: Denies confusion PFSH All Active Problems (Updated 11/29/21 @ 10:30 by RAMAN Wyman) Suppurative tenosynovitis of flexor tendon of left hand (Acute 11/28/21) Cellulitis of hand, left (Acute 11/28/21) Pseudoseizure (Acute) Migraine headache without aura (Acute) Chronic headache (Acute) Epilepsy (Acute) Agitation (Acute) Hand pain (Acute) Cellulitis (Acute) Knee pain (Acute) Seizure (Acute) Fracture of nasal bone (Acute) Acute hypokalemia (Acute) Medical History 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 GERD (gastroesophageal reflux disease) Hemidiaphragm paralysis History of alcohol abuse Hypokalemia IBS (irritable bowel syndrome) Major depression, recurrent, chronic PTSD (post-traumatic stress disorder) Scrotal abscess (02/09/18) Seizure disorder Surgical History No significant past surgical history Family History Maternal Aunt Diabetes Heart disease Stroke Social History Smoking/Tobacco Use Status: Current every day Tobacco Type: smokeless tobacco Smokeless tobacco user: chewing tobacco and snuff Smoking risk assessment performed?: Yes Alcohol Intake: former Drug use: Daily Substance use type: marijuana Household members: family Number of Children: 2 Communication Needs: Cannot Read Education Level: high school current occupation: Disabled Do you feel safe at home: Yes Do you feel safe in your relationship?: Yes Additional Social history: Lives with his mother. He does not drive. Exam Const General: cooperative, no acute distress and not ill appearing Orientation: alert, awake and oriented x3 HENMT Mouth: moist mucous membranes Resp Effort & Inspection: normal respiratory effort, able to speak in complete sentences and no respiratory distress Cardio Rate: regular rate Rhythm: regular rhythm Skin Trauma: puncture Neuro General: patient alert, patient awake, patient oriented x3, moves all extremities, normal light touch, pain and propioception and no focal motor deficits Sensory Exam: no sensory deficits noted Extrem General: normal exam except as noted Left upper extremity: wrist Details: swelling, normal ROM and warmth and hand Details: normal capillary refill, neurosensory exam normal, tenderness Location: of the palm, of the 3rd digit and of the 4th digit, vascular exam Details: radial pulse present and normal capillary refill, abnormal ROM of finger Details: pain with active ROM Location: of the 3rd digit and of the 4th digit, pain with passive ROM Location: of the 3rd digit and of the 4th digit and unable to flex or extend Location: of the 3rd digit, warmth, swelling Location: of the dorsal hand, of the palm, of the thumb, of the 2nd digit, of the 3rd digit and of the 4th digit and puncture wound (palmar surface) Course Vital Signs Vital signs: Vital Signs Temperature 37.7 C H 11/28/21 09:32 Pulse 116 H 11/28/21 09:32 Respiratory Rate 18 11/28/21 09:32 Blood Pressure 143/94 H 11/28/21 09:32 Pulse Oximetry 98 11/28/21 09:32 Temperature 37.7 C H 11/28/21 09:32 Temperature Source Temporal Artery Scan 11/28/21 09:32 Pulse 116 H 11/28/21 09:32 Respiratory Rate 18 11/28/21 09:32 Blood Pressure 143/94 H 11/28/21 09:32 Blood Pressure Position Sitting 11/28/21 09:32 Pulse Oximetry 98 11/28/21 09:32 Oxygen Delivery Method Room Air 11/28/21 09:32 Oxygen Flow Rate 0 11/28/21 09:32 Lab/Test Results Lab/Test Results: 11/28/21 09:51 Blood Blood Culture - Pending 11/28/21 09:51 Blood Blood Culture - Pending
[2021-11-28] MEDS: Normal Saline 1,000 ML 1000 ML IV (10:17)
[2021-11-28] MEDS: Normal Saline Flush 10 ML SYR IVP ×2 (10:17→10:56)
[2021-11-28 10:19] LABS: Abs Immature Grans 0.04 10^3/uL (0.0-0.06); Absolute Basophil Count 0.03 10^3/uL (0.0-0.2); Absolute Eosinophil Count 0.01 10^3/uL (0.0-0.7); Absolute Lymphocyte Count 0.97 10^3/uL (1.2-3.4); Basophils % 0.2; Eosinophils % 0.1; HCT 45.7 % (40.0-50.0); HGB 14.5 g/dL (13.5-17.5); Immature Grans % 0.3; Lactate 1.6 mmol/L (0.6-1.4); Lymphocytes % 7.4; MCH 29.7 pg (27.0-33.0); MCHC 31.7 % (32.0-36.0); MCV 93.5 fL (80-95); MPV 9.8 fL (8.0-11.0); Monocytes % 8.4; Neutrophils % 83.6; Platelet Count 311 10^3/uL (130-400); RBC 4.89 10^6/uL (4.36-5.78); RDW 14.2 % (11.8-14.1); RDW-SD 48.7 fL; WBC 13.14 10^3/uL (4.4-10.8)
[2021-11-28 10:22] LABS: Absolute Neutrophil Count 10.99 10^3/uL (1.2-6.7)
[2021-11-28 10:25] LABS: ESR 14 mm/hr (0-15)
[2021-11-28 10:43] LABS: ALT 18 U/L (16-63); AST 16 U/L (15-37); Alkaline Phosphatase 127 U/L (46-116); Anion Gap 6.7 mmol/L (3-11); BUN 8 mg/dL (7-18); Bilirubin, Total 0.4 mg/dL (0.2-1.0); C-Reactive Protein 4.78 mg/dL (0.0-0.3); CO2 29.3 mmol/L (21.0-32.0); CREATININE 0.9 mg/dL (0.70-1.30); Calcium 9.4 mg/dL (8.5-10.1); Chloride 103 mmol/L (98-107); Glucose 89 mg/dL (74-106); Potassium 4.5 mmol/L (3.5-5.1); Sodium 139 mmol/L (136-145); Total Protein 8.3 g/dL (6.4-8.2)
[2021-11-28] MEDS: PIPERACILLIN/TAZO 3.375 GM in Normal Saline 50 ML IVPB (10:56)
[2021-11-28] MEDS: VANCOMYCIN 1,000 MG in Normal Saline 250 ML 166.6666 MG IVPB (12:20)
[2021-11-28 13:57] VITALS: BP 128/88; PULSE 94; RESP 17; TEMP 36.7; O2SAT 97
== END 2021-11-28 14:02 | disposition left against medical advice (07) ==
PROVIDERS: Emergency Provider Nurse Practitioner Family; PCP Family Medicine
DX: S61.432A Puncture wound without foreign body of left hand, initial encounter (principal); L03.114 Cellulitis of left upper limb; M65.842 Other synovitis and tenosynovitis, left hand; Z53.29 Procedure and treatment not carried out because of patient's decision for other reasons
CPT/HCPCS: 36415; 80053; 85652; 87040; 96361; 96365; 96366; 96367; 99284; 73130; 83605; 85025; 86140; 99283; J2543

== ENCOUNTER 2022-04-08 15:09 | Outpatient (REF) | payer MEDICAID, SELFPAY ==
[2022-04-08 15:30] LABS: HCT 44.2 % (40.0-50.0); HGB 14.7 g/dL (13.5-17.5); MCH 28.7 pg (27.0-33.0); MCHC 33.3 % (32.0-36.0); MCV 86 fL (80-95); MPV 11.2 fL (8.0-11.0); Platelet Count 378 10^3/uL (130-400); RBC 5.12 10^6/uL (4.36-5.78); RDW 12.8 % (11.8-14.1); RDW-SD 40.4 fL; WBC 7.52 10^3/uL (4.4-10.8)
[2022-04-08 16:12] LABS: ALT 31 U/L (16-63); AST 23 U/L (15-37); Albumin 3.8 g/dL (3.4-5.0); Alkaline Phosphatase 96 U/L (46-116); Anion Gap 10.8 mmol/L (3-11); BUN 9 mg/dL (7-18); Bilirubin, Total 0.1 mg/dL (0.2-1.0); CO2 24.2 mmol/L (21.0-32.0); CREATININE 0.8 mg/dL (0.70-1.30); Calcium 8.8 mg/dL (8.5-10.1); Chloride 106 mmol/L (98-107); Estimated GFR 113.32 (mL/min/1.73m2); Folate 2.2 ng/mL (8.6-20.0); Glucose 84 mg/dL (74-106); PHENOBARBITAL 25.4 ug/mL (15.0-40.0); Potassium 4.2 mmol/L (3.5-5.1); Sodium 141 mmol/L (136-145)
[2022-04-08 16:22] LABS: Hemoglobin A1C 5.7 % (<5.7)
[2022-04-09 09:31] LABS: Hepatitis C Ab w Rflx HCV PCR Negative (Negative)
[2022-04-09 09:51] LABS: HIV-1/2 Ag & Ab Screen Negative (Negative)
== END 2022-04-08 15:10 | disposition home or self-care (01) ==
LOC: NCHCN 15:09
PROVIDERS: PCP Family Medicine; Visit Provider Family Medicine
DX: Z00.00 Encounter for general adult medical examination without abnormal findings (principal); R56.9 Unspecified convulsions; Z11.4 Encounter for screening for human immunodeficiency virus [HIV]
CPT/HCPCS: 80053; 85027; 86803; 87389; 80184; 82746; 83036

== ENCOUNTER 2022-08-29 11:47 | Emergency (ER) | payer MEDICAID, SELFPAY ==
[2022-08-29] VITALS (12 sets, daily range): BP systolic 128–142; BP diastolic 84–100; PULSE 115–127; RESP 18–34; TEMP 36.3–36.8; O2SAT 99–100
--- NOTE | 2022-08-29 12:57 | ED.GENADUL_ITS ---
Discharge Plan Disposition Patient Disposition: Home Condition: Stable Discharge Details Clinical Impression: Laceration of scalp Primary Care Provider: Ehsan Crockett ED Provider: Josh Mosher Home Meds and New Rx's Prescriptions: Continued clonazepam 0.5 mg tablet,disintegrating 0.5 mg PO DAILY PRN (Reason: seizure) Qty: 7 0RF Rx Instructions: Place inside cheek for seizure >[address] 2nd if still seizing after 7min. If still seizing at 10min, call 911. cholecalciferol (vitamin D3) 25 mcg (1,000 unit) capsule 25 mcg PO DAILY phenobarbital 97.2 mg tablet 97.2 mg PO QHS topiramate 100 mg tablet 100 mg PO QHS Qty: 90 1RF mirtazapine 30 MG tablet 30 mg PO HS citalopram 40 mg tablet 40 mg PO DAILY Discharge Instructions Instructions: Laceration (ED) Additional Instructions: Laceration repaired without difficulty. Tetanus status is up-to-date. Please keep the area clean and dry, you may apply antibiotic ointment daily. [id number] Tylenol and/or Motrin as directed for discomfort. Cool compresses every 2 hours for 20 minutes. Please watch for new or worsening symptoms and return to the ER for any concerns. [place] removed in 5 days Medical Decision Making This is a 42-year-old gentleman, tetanus status up-to-date, reports that he was bent over, got up and struck his head on the shelf above him causing a laceration. Injury was low mechanism. Neurologically intact. Denies global headache, LOC, visual changes, neck pain, nausea, vomiting, change in bowel or bladder function. Plan is to repair the laceration. He unfortunately is aller gic to lidocaine. Declines p.o. ibuprofen or Tylenol. Please see procedural note. Patient tolerated well Standard discharge and return precautions were provided. Patient understands, is agreeable to this plan, and has no additional questions or concerns upon discharge. This documentation was generated using [employer] system, please disregard any oddities of phrase or misspellings. Medical Records Medical records reviewed: Yes I reviewed the patient's medical records. HPI General Mode of arrival: ambulatory . Date/Time Provider Initiated Documentation: 08/29/22 12:03 . Limitations to Documentation: no limitations . Information obtained by: patient . History of Present Illness 42 year old M presents to the emergency department with the chief complaint of Scalp laceration, described as mild, with intensity rated at 3. Quality is described as aching, and is localized to the head. Patient reports no radiation. Patient started experiencing this hour(s) (1) and it has been constant. No relieving factors improve symptom(s), No exacerbating factors reported . Patient notes no other symptoms.. Patient did receive the following treatments prior to arrival, none Related Data Home Medications Medication Instructions Recorded Confirmed mirtazapine 30 mg tablet 30 mg PO HS 11/10/12 11/29/21 citalopram 40 mg tablet 40 mg PO DAILY 12/08/20 11/29/21 cholecalciferol (vitamin D3) 25 25 mcg PO DAILY 01/16/21 11/29/21 mcg (1,000 unit) capsule phenobarbital 97.2 mg tablet 97.2 mg PO QHS 01/16/21 11/29/21 clonazepam 0.5 mg disintegrating 0.5 mg PO DAILY PRN seizure #7 tabs 03/05/21 11/29/21 tablet topiramate 100 mg tablet 100 mg PO QHS #90 tabs 03/12/22 Previous Rx's Medication Instructions Recorded clonazepam 0.5 mg disintegrating 0.5 mg PO DAILY PRN seizure #7 tabs 03/05/21 tablet topiramate 100 mg tablet 100 mg PO QHS #90 tabs 03/12/22 Allergies Allergy/AdvReac Type Severity Reaction Status Date / Time aspirin Allergy Intermediate Skin Rash Unverified 11/29/21 10:14 ketorolac tromethamine Allergy Unknown Unverified 11/29/21 10:14 [From Toradol] lidocaine Allergy pt reports Unverified 11/29/21 10:14 seizures tramadol AdvReac Mild stomach Unverified 11/29/21 10:14 cramps codeine AdvReac Unverified 11/29/21 10:14 ibuprofen AdvReac Nausea Unverified 11/29/21 10:14 General Stated Complaint: Laceration KELY: 3 Review of Systems Constitutional Constitutional: Denies headache(s) and Denies weakness Eyes Eyes: Denies change in vision ENT Ears, Nose, Mouth, and Throat: Denies headache(s) and Denies neck pain Gastrointestinal Gastrointestinal: Denies nausea and Denies vomiting Musculoskeletal Musculoskeletal: Denies neck pain, Denies numbness and Denies tingling Neurologic Neurologic: Denies headache(s), Denies numbness, Denies tingling and Denies weakness PFSH All Active Problems (Updated 08/29/22 @ 13:06 by RAMAN Sorensen) Laceration of scalp (Acute) Suppurative tenosynovitis of flexor tendon of left hand (Acute 11/28/21) Pseudoseizure (Acute) Migraine headache without aura (Acute) Chronic headache (Acute) Epilepsy (Acute) Agitation (Acute) Hand pain (Acute) Cellulitis (Acute) Knee pain (Acute) Seizure (Acute) Fracture of nasal bone (Acute) Acute hypokalemia (Acute) Medical History 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 GERD (gastroesophageal reflux disease) Hemidiaphragm paralysis History of alcohol abuse Hypokalemia IBS (irritable bowel syndrome) Major depression, recurrent, chronic PTSD (post-traumatic stress disorder) Scrotal abscess (02/09/18) Seizure disorder Surgical History No significant past surgical history Family History Maternal Aunt Diabetes Heart disease Stroke Social History Smoking/Tobacco Use Status: Current every day Tobacco Type: smokeless tobacco Smokeless tobacco user: chewing tobacco and snuff Smoking risk assessment performed?: Yes Alcohol Intake: former Drug use: Daily Substance use type: marijuana Household members: family Number of Children: 2 Communication Needs: Cannot Read Education Level: high school current occupation: Disabled Do you feel safe at home: Yes Do you feel safe in your relationship?: Yes Additional Social history: Lives with his mother. He does not drive. Exam Const General: cooperative, healthy appearing, comfortable and no acute distress Orientation: alert, awake and oriented x3 HENMT Head: normocephalic Head images: 1. 2.5 cm well approximated laceration. No active bleeding. No foreign body. No crepitus. Minimal diffuse discomfort. Face and sinus: normal facial exam Mouth: moist mucous membranes Eyes Conjunctivae: conjunctivae normal Neck Neck: normal visual inspection, full ROM, no meningeal signs, trachea midline, supple and nontender Resp Effort & Inspection: normal respiratory effort and able to speak in complete sentences Cardio Rate: tachycardic (104) Rhythm: regular rhythm Skin General skin exam: no rashes or lesions noted Neuro General: patient alert, patient awake, patient oriented x3, moves all extremities and no focal motor deficits Cognition: normal cognition Speech: speech normal Gait: normal gait Motor: muscle tone normal throughout Sensory Exam: no sensory deficits noted Psych Appearance: grossly normal Mental Status: mental status grossly normal Course Vital Signs Vital signs: Vital Signs Temperature 36.3 C L 08/29/22 11:57 Pulse 127 H 08/29/22 11:57 Respiratory Rate 18 08/29/22 11:57 Blood Pressure 131/89 08/29/22 11:57 Pulse Oximetry 99 08/29/22 11:57 Temperature 36.3 C L 08/29/22 11:57 Pulse 117 H 08/29/22 12:46 Pulse 118 H 08/29/22 12:50 Respiratory Rate 27 H 08/29/22 12:50 Respiratory Effort 08/29/22 12:03 Blood Pressure 135/84 08/29/22 12:46 Blood Pressure Mean 96 08/29/22 12:46 Blood Pressure Position Sitting 08/29/22 11:57 Pulse Oximetry 99 08/29/22 12:50 Oxygen Delivery Method Room Air 08/29/22 11:57 Oxygen Flow Rate 0 08/29/22 11:57 Procedures Laceration Laceration 1: Site: scalp Size (cm): 2.5 Description: linear and clean Depth: simple, single layer Pre-repair: wound explored, irrigated extensively and deep structures intact Skin layer closed with: other (Rolo) Number of sutures: 3
== END 2022-08-29 17:50 | disposition home or self-care (01) ==
PROVIDERS: Emergency Provider Physician Assistant; PCP Family Medicine
DX: S01.01XA Laceration without foreign body of scalp, initial encounter (principal); W22.8XXA Striking against or struck by other objects, initial encounter
CPT/HCPCS: 12001

== ENCOUNTER 2023-03-03 08:52 | Emergency (ER) | payer MEDICAID, SELFPAY ==
[2023-03-03] VITALS (26 sets, daily range): BP systolic 93–146; BP diastolic 55–104; PULSE 86–122; RESP 11–23; TEMP 36.1; O2SAT 95–100
--- NOTE | 2023-03-03 09:00 | RT.EKG_ITS ---
APPROVED REPORT Exam: Resting ECG Reason for Exam: Seizure Patient Location: E HR:115 bpm ECG Measurements Heart Rate [address] 160 P 72 QRSd 88 QRS 59 QT 328 T 88 QTc 455 Conclusion Sinus tachycardia...rate> 99 Probable left atrial enlargement...P >50mS, <-0.10mV V1 Abnrm T, consider ischemia, anterolateral lds...T <-0.20mV, I aVL V2-V6
--- NOTE | 2023-03-03 09:01 | W.ED.GENAD ---
Discharge Plan Disposition Patient Disposition: Home Condition: Stable Discharge Details Clinical Impression: Generalized seizure, Marijuana user Primary Care Provider: Ehsan Crockett ED Provider: Aakash Ibrahim Home Meds and New Rx's Prescriptions: New topiramate 50 mg tablet See Rx Instructions .ROUTE .COMPLEX Qty: 120 0RF Rx Instructions: Days 1-7: take 1 tab (50 mg) PO qAM and 2 tabs (100 mg) PO qHS. THEN take 2 tab (100mg) PO BID Continued clonazepam 0.5 mg tablet,disintegrating 0.5 mg PO DAILY PRN (Reason: seizure) Qty: 7 0RF Rx Instructions: Place inside cheek for seizure >[address] 2nd if still seizing after 7min. If still seizing at 10min, call 911. cholecalciferol (vitamin D3) 25 mcg (1,000 unit) capsule 25 mcg PO DAILY phenobarbital 97.2 mg tablet 97.2 mg PO QHS mirtazapine 30 MG tablet 30 mg PO HS citalopram 40 mg tablet 40 mg PO DAILY Discontinued topiramate 100 mg tablet 100 mg PO QHS Qty: 90 1RF Discharge Instructions Instructions: Recurrent Seizures in Adults (ED) Additional Instructions: Stop using marijuana. Using marijuana may lower your seizure threshold and cause you to have more seizures. Please contact your primary care physician to arrange follow-up. No driving motor vehicle or operating heavy machinery until cleared by neurology. You have a follow-up appointment with neurology on March 09 at 1:45. Please be sure to make this appointment. Return to the ER immediately for any worsening or new concerning symptoms. Referrals: Ehsan Crockett [Primary Care Provider] - Ruthie Bejarano MD [ [facility] STAFF [facility]YSICIAN] - Medical Decision Making 915 --42-year-old male with history of seizure disorder, pseudoseizure, here after witnessed generalized tonic clonic seizure after having smoked what he thought was marijuana. Patient was unresponsive and required bag valve mask ventilation by EMS prior to naloxone administration. Patient did seem to improve about a minute after IV administration of naloxone. Patient denies opioid use. Screening EKG to assess for arrhythmia was reviewed and interpreted by me: Please see report, nondiagnostic, sinus tachycardia. Patient is topiramate which she has been taking as prescribed. He notes he is no longer prescribed phenobarbital for approximately 1 year. Plan to consult neurology. 1128 --patient reassessed remained stable. No recurrent seizures. I called and spoke with neurology, Dr. Bejarano, discussed ED presentation course, she recommends increasing topiramate to 50 mg in a.m. and 100 mg p.m. for 1 week and then increasing further to 100 twice daily. She will be happy to see the patient in follow-up. Usual customary discharge instructions reviewed with the patient. Lab Data Lab results reviewed: Yes I reviewed the patient's lab results. Labs: Laboratory Tests Range/Units 03/03/23 03/03/23 03/03/23 09:15 09:15 10:55 WBC (4.4-10.8) 10^3/uL 7.47 RBC (4.36-5.78) 10^6/uL 5.03 Hgb (13.5-17.5) g/dL 14.5 Hct (40.0-50.0) % 44.9 MCV (80-95) fL 89 MCH (27.0-33.0) pg 28.8 MCHC (32.0-36.0) % 32.3 RDW (11.8-14.1) % 12.5 Plt Count (130-400) 10^3/uL 272 MPV (8.0-11.0) fL 10.9 Immature Gran % 0.4 Neutrophils % 57.9 Lymphocytes % 32.7 Monocytes % 6.6 Eosinophils % 1.6 Basophils % 0.8 Nucleated RBC % (0.0-0.3) % 0.0 Absolute Neutrophils (1.2-6.7) 10^3/uL 4.33 Absolute Lymphocytes (1.2-3.4) 10^3/uL 2.44 Absolute Monocytes (0.1-0.8) 10^3/uL 0.49 Absolute Eosinophils (0.0-0.7) 10^3/uL 0.12 Absolute Basophils (0.0-0.2) 10^3/uL 0.06 Sodium (136-145) mmol/L 139 Potassium (3.5-5.1) mmol/L 4.4 Chloride (98-107) mmol/L 106 Carbon Dioxide (21.0-32.0) mmol/L 27.7 Anion Gap (3-11) mmol/L 5.3 BUN (7-18) mg/dL 16 Creatinine (0.70-1.30) mg/dL 1.1 Est GFR (CKD-EPI 2020) (mL/min/1.73m2) 85.42 Glucose (74-106) mg/dL 185 H Calcium (8.5-10.1) mg/dL 8.4 L Magnesium (1.8-2.4) mg/dL 1.8 Total Bilirubin (0.2-1.0) mg/dL 0.3 AST (15-37) U/L 13 L ALT (16-63) U/L 14 L Alkaline Phosphatase (46-116) U/L 101 Troponin I (<or=60) ng/L < 50 Total Protein (6.4-8.2) g/dL 6.8 Albumin (3.4-5.0) g/dL 3.5 Urine Opiates Screen (Negative) Negative Urine Methadone Screen (Negative) Negative Ur Barbiturates Screen (Negative) Negative Ur Tricyclics Screen (Negative) Negative Ur Amphetamines Screen (Negative) Negative Phenobarbital (15.0-40.0) ug/mL < 1.0 L U Benzodiazepines Scrn (Negative) Negative Urine Cocaine Screen (Negative) Negative Ur THC Screen (Negative) Positive A HPI General Mode of arrival: EMS. Date/Time Provider Initiated Documentation: 03/03/23 08:52. Limitations to Documentation: altered mental status. Information obtained by: patient and EMS. HPI Narrative: 42-year-old male with history of seizure disorder presents after seizure and postictal state. Patient apparently had witnessed generalized tonic-clonic seizure that lasted approximately 7 minutes. No trauma. EMS arrived to find the patient completely unresponsive and required BVM rescue breathing. Blood glucose 150. Patient was administered naloxone IV by EMS and had significant improvement in mentation within 1 minute. Patient has no complaints at this time other than seizure. Related Data Home Medications Medication Instructions Recorded Confirmed mirtazapine 30 mg tablet 30 mg PO HS 11/10/12 03/03/23 citalopram 40 mg tablet 40 mg PO DAILY 12/08/20 03/03/23 cholecalciferol (vitamin D3) 25 25 mcg PO DAILY 01/16/21 03/03/23 mcg (1,000 unit) capsule phenobarbital 97.2 mg tablet 97.2 mg PO QHS 01/16/21 11/29/21 clonazepam 0.5 mg disintegrating 0.5 mg PO DAILY PRN seizure #7 tabs 03/05/21 03/03/23 tablet topiramate 50 mg tablet See Rx Instructions .Route 03/03/23 .COMPLEX #120 tabs Previous Rx's Medication Instructions Recorded clonazepam 0.5 mg disintegrating 0.5 mg PO DAILY PRN seizure #7 tabs 03/05/21 tablet topiramate 50 mg tablet See Rx Instructions .Route 03/03/23 .COMPLEX #120 tabs Allergies Allergy/AdvReac Type Severity Reaction Status Date / Time aspirin Allergy Intermediate Skin Rash Unverified 11/29/21 10:14 ketorolac tromethamine Allergy Unknown Unverified 11/29/21 10:14 [From Toradol] lidocaine Allergy pt reports Unverified 11/29/21 10:14 seizures tramadol AdvReac Mild stomach Unverified 11/29/21 10:14 cramps codeine AdvReac Unverified 11/29/21 10:14 ibuprofen AdvReac Nausea Unverified 11/29/21 10:14 General KELY: 3 Review of Systems All systems reviewed & are unremarkable except as noted in HPI and below Constitutional Constitutional: Denies fever(s) Cardiovascular Cardiovascular: Denies chest pain PFSH All Active Problems (Updated 03/03/23 @ 11:28 by Aakash Ibrahim MD) Generalized seizure (Acute) Marijuana user (Acute) Suppurative tenosynovitis of flexor tendon of left hand (Acute 11/28/21) Pseudoseizure (Acute) Migraine headache without aura (Acute) Chronic headache (Acute) Epilepsy (Acute) Agitation (Acute) Hand pain (Acute) Cellulitis (Acute) Knee pain (Acute) Seizure (Acute) Fracture of nasal bone (Acute) Acute hypokalemia (Acute) Medical History 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 GERD (gastroesophageal reflux disease) Hemidiaphragm paralysis History of alcohol abuse Hypokalemia IBS (irritable bowel syndrome) Major depression, recurrent, chronic PTSD (post-traumatic stress disorder) Scrotal abscess (02/09/18) Seizure disorder Surgical History No significant past surgical history Family History Maternal Aunt Diabetes Heart disease Stroke Social History Smoking/Tobacco Use Status: Current every day Tobacco Type: smokeless tobacco Smokeless tobacco user: chewing tobacco and snuff Smoking risk assessment performed?: Yes Alcohol Intake: former Drug use: Daily Substance use type: marijuana Household members: family Housing: apartment Number of Children: 2 Communication Needs: Cannot Read Education Level: high school current occupation: Disabled Do you feel safe at home: Yes Do you feel safe in your relationship?: Yes Additional Social history: Lives with his mother. He does not drive. Exam Const General: cooperative and no acute distress HENMT Head: normocephalic and atraumatic Mouth: moist mucous membranes Eyes Conjunctivae: normal conjunctivae Sclera: normal sclerae Neck Neck: trachea midline and supple Resp Auscultation: clear to auscultation bilaterally, no rales, no rhonchi and no wheezes Cardio Rate: tachycardic Rhythm: regular rhythm GI Palpation: soft, not firm, no guarding, no masses, not rigid and nontender Skin General skin exam: no rashes or lesions noted Neuro General: patient alert, patient awake and tone normal Cranial Nerves: CN's II-XI intact bilaterally Cognition: normal cognition Speech: speech normal Motor: strength 5/5 throughout Sensory Exam: no sensory deficits noted Extrem General: no edema Psych Appearance: grossly normal Mental Status: mental status grossly normal
[2023-03-03] MEDS: Lactated Ringers 500 ML IV (09:19)
[2023-03-03 09:30] LABS: Abs Immature Grans 0.03 10^3/uL (0.0-0.06); Absolute Basophil Count 0.06 10^3/uL (0.0-0.2); Absolute Eosinophil Count 0.12 10^3/uL (0.0-0.7); Absolute Lymphocyte Count 2.44 10^3/uL (1.2-3.4); Absolute Monocyte Count 0.49 10^3/uL (0.1-0.8); Absolute Neutrophil Count 4.33 10^3/uL (1.2-6.7); Basophils % 0.8; Eosinophils % 1.6; HCT 44.9 % (40.0-50.0); HGB 14.5 g/dL (13.5-17.5); Immature Grans % 0.4; Lymphocytes % 32.7; MCH 28.8 pg (27.0-33.0); MCHC 32.3 % (32.0-36.0); MCV 89 fL (80-95); MPV 10.9 fL (8.0-11.0); Monocytes % 6.6; Neutrophils % 57.9; Platelet Count 272 10^3/uL (130-400); RBC 5.03 10^6/uL (4.36-5.78); RDW 12.5 % (11.8-14.1); RDW-SD 41.3 fL; WBC 7.47 10^3/uL (4.4-10.8)
[2023-03-03 09:40] LABS: ALT 14 U/L (16-63); AST 13 U/L (15-37); Albumin 3.5 g/dL (3.4-5.0); Alkaline Phosphatase 101 U/L (46-116); Anion Gap 5.3 mmol/L (3-11); BUN 16 mg/dL (7-18); Bilirubin, Total 0.3 mg/dL (0.2-1.0); CO2 27.7 mmol/L (21.0-32.0); CREATININE 1.1 mg/dL (0.70-1.30); Calcium 8.4 mg/dL (8.5-10.1); Chloride 106 mmol/L (98-107); Estimated GFR 85.42 (mL/min/1.73m2); Glucose 185 mg/dL (74-106); Magnesium 1.8 mg/dL (1.8-2.4); PHENOBARBITAL < 1.0 ug/mL (15.0-40.0); Potassium 4.4 mmol/L (3.5-5.1); Sodium 139 mmol/L (136-145); Total Protein 6.8 g/dL (6.4-8.2); Troponin I < 50 ng/L (<or=60)
[2023-03-03] MEDS: Topiramate 100 MG TAB PO (09:40)
--- NOTE | 2023-03-03 10:06 | NUR.NOTE ---
Mon Mar 09 @13:45. Dr. Bejarano. EDNursing Note:
[2023-03-03 11:20] LABS: *AMPHETAMINES SCREEN URINE Negative (Negative); *BARBITURATES SCREEN URINE Negative (Negative); *BENZODIAZEPINES SCREEN URINE Negative (Negative); Cannabinoids THC Positive (Negative); Cocaine Screen,Urine Negative (Negative); METHADONE URINE SCREEN Negative (Negative); OPIATES URINE SCREEN Negative (Negative)
[2023-03-03 11:21] LABS: Tricyclic Antidepressants Negative (Negative)
--- NOTE | 2023-03-03 13:07 | NUR.NOTE ---
Nursing Note:Dr. Ibrahim requesting patient's phone number.
== END 2023-03-03 12:08 | disposition home or self-care (01) ==
LOC: ER 10:51
PROVIDERS: Emergency Provider Student in an Organized Health Care Education/Training Program; PCP Family Medicine
DX: G40.409 Other generalized epilepsy and epileptic syndromes, not intractable, without status epilepticus (principal); R00.0 Tachycardia, unspecified; F17.220 Nicotine dependence, chewing tobacco, uncomplicated
CPT/HCPCS: 80053; 80307; 93005; 96361; 99284; 80184; 83735; 84484; 85025; 93010

== ENCOUNTER 2024-09-12 17:44 | Emergency (ER) | payer MEDICAID, SELFPAY ==
[2024-09-12 17:59] VITALS: BP 124/76; PULSE 124; RESP 18; TEMP 36.7; O2SAT 98
--- OUTSIDE RECORDS SUMMARY | 2024-09-12 18:32 | XMS_ITS | Encounter Summary ---
Author Organization [facility] Address [address] [place] [address] Care Team Providers Care Brick Layer Name Role Phone Unavailable Primary Care Provider Unavailabl e Encounter Details Date Type Department Care Team (Late st Contact Info) Description 04/08/2022 Lab Requisition [facility] Pathology & Laboratory Medicine - [facility] [address] [place] [address] Outr Resulting Lab, Provider Social History Tobacco Use Types Packs/Day Years Used Date Smoking Tobacco: Never Assessed Sex and Gender Information Value Date Recorded Sex Assigned at Not on file Legal Sex Male 20:19 EDT Gender Identity Not on file Sexual Orientation Not on file documented as of this encounter Plan of Treatment Not on file documented as of this encounter Procedures Procedure Name Priority Date/Time Associated Diagnosis Comments HEPATITIS C AB W REFLEX TO HCV RNA BY PCR Routine 04/08/2022 12:15 EDT documented in this encounter Results * HEPATITIS C AB W REFLEX TO HCV RNA BY PCR (04/08/2022 12:15 EDT) Hep C Antibody Negative Negative 04/09/2022 9:[address] [facility] Blood VENOUS BLOOD / Unknown 04/08/2022 12:15 EDT 04/08/2022 21:41 EDT us Provider Outr Resulting Lab CHEMISTRY & BLOOD GA S ORDERABLES Final Result [facility] [address] [place] [address] documented in this encounter Visit Diagnoses Not on filedocumented in this encounter
--- OUTSIDE RECORDS SUMMARY | 2024-09-12 18:32 | XMS_ITS | Referral Summary ---
Author Organization [facility] Address [address] [place] [address] Care Team Providers Care Roustabout Hand Name Role Phone Unavailable Primary Care Provider Unavailabl e Social History Tobacco Use Types Packs/Day Years Used Date Smoking Tobacco: Never Assessed Sex and Gender Information Value Date Recorded Sex Assigned at Not on file Legal Sex Male 20:19 EDT Gender Identity Not on file Sexual Orientation Not on file Plan of Treatment Not on file Procedures Procedure Name Priority Date/Time Associated Diagnosis Comments HEPATITIS C AB W REFLEX TO HCV RNA BY PCR Routine 04/08/2022 12:15 EDT from Last 3 Months or Most Recently Relevant to Health Maintenance Results * HEPATITIS C AB W REFLEX TO HCV RNA BY PCR (04/08/2022 12:15 EDT) Hep C Antibody Negative Negative 04/09/2022 9:27 EDT [facility] Blood VENOUS BLOOD / Unknown 04/08/2022 12:15 EDT 04/08/2022 21:41 EDT us Provider Outr Resulting Lab CHEMISTRY & BLOOD GA S ORDERABLES Final Result [facility] [address] [place] [address] from Last 3 Months or Most Recently Relevant to Health Maintenance
--- OUTSIDE RECORDS SUMMARY | 2024-09-12 18:32 | XMS_ITS | Encounter Summary ---
Author Organization [facility] Address [address] [place] [address] Care Team Providers Care Rug Repairer Name Role Phone Unavailable Primary Care Provider Unavailabl e Encounter Details Date Type Department Care Team (Late st Contact Info) Description 04/08/2022 Lab Requisition [facility] Pathology & Laboratory Medicine - [facility] [address] [place] [address] Outr Resulting Lab, Provider Social History Tobacco [...] Procedure Name Priority Date/Time Associated Diagnosis Comments HIV 1/2 ANTIGEN AND ANTIBODY, 4TH GENERATION Routine 04/08/2022 12:15 EDT documented in this encounter Results * HIV 1/2 ANTIGEN AND ANTIBODY, 4TH GENERATION (04/08/2022 12:15 EDT) HIV 1 and 2 Antibody/p24 Antigen, 4th Generation Negative Negative 04/09/2022 9:46 EDT [facility] Comment:If acute HIV-1 infec tion is suspected in a high risk patient, submit plasma specimen for HIV-1 RNA quantitation test. Blood VENOUS BLOOD / Unknown 04/08/2022 12:15 EDT 04/08/2022 21:41 EDT Narrative [facility] - 04/09/2022 9:46 EDT Fourth Generation assay performed on the Siemens Centaur XPT. us Provider Outr Resulting Lab IMMUNOLOGY AND SEROL OGY ORDERABLES Final Result Performing Organization Address [facility]/State/ZIP Co de Phone Number [facility] [address] [place] [address] documented in this encounter Visit Diagnoses Not on filedocumented in this encounter
--- OUTSIDE RECORDS SUMMARY | 2024-09-12 18:32 | XMS_ITS | Clinical Summary ---
Author Organization [facility] Address [address] [place] [address] Care Team Providers Care Soil Sort Worker Name Role Phone Unavailable Primary Care Provider Unavailabl e Social History Tobacco Use Types Packs/Day Years Used Date Smoking Tobacco: Never Assessed Sex and Gender Information Value Date Recorded Sex Assigned at Not on file Legal Sex Male 20:19 EDT Gender Identity Not on file Sexual Orientation Not on file Plan of Treatment Health Maintenance Due Date Last Done Comments Hepatitis B Vaccine (1 of 3 - 19+ 3-dose series) 05/14 COVID-19 Vaccine ( season) 2024 Hepatitis C Screen Completed 04/08/2022 Procedures Procedure Name Priority Date/Time Associated Diagnosis Comments HEPATITIS C AB W REFLEX TO HCV RNA BY PCR Routine 04/08/2022 12:15 EDT from Last 3 Months or Most Recently Relevant to Health Maintenance Results * HEPATITIS C AB W REFLEX TO HCV RNA BY PCR (04/08/2022 12:15 EDT) Hep C Antibody Negative Negative 04/09/2022 9:27 EDT [facility] Blood VENOUS BLOOD / Unknown 04/08/2022 12:15 EDT 04/08/2022 21:41 EDT us Provider Outr Resulting Lab CHEMISTRY & BLOOD GA S ORDERABLES Final Result [facility] [address] [place] [address] from Last 3 Months or Most Recently Relevant to Health Maintenance
--- OUTSIDE RECORDS SUMMARY | 2024-09-12 18:33 | XMS_ITS | Encounter Summary ---
Author Organization [facility] Address [facility] [place] [address] Care Team Providers Care Holistic Nutritionist Name Role Phone Ehsan Baker MD Primary Care Provider Owen valdivia Encounter Details Date Type Department Care Team (Late st Contact Info) Description 10/24/2015 2:15 PM EDT Office Visit Occupational Therapy at [facility] [address] [place] [address] Carly Pierre OT Crush injury of hand, right, initial encounter Social History Tobacco Use Types Packs/Day Years Used Date Smoking Tobacco: Former Smokeless Tobacco: Current Chew Alcohol Use Standard Drinks/Week Comments No 0 (1 standard drink = 0.6 oz pur e alcohol) Sex and Gender Information Value Date Recorded Sex Assigned at Not on file Gender Identity Not on file Sexual Orientation Not on file documented as of this encounter Progress Notes * Carly Pierre OT - 10/24/2015 1:38 PM EDT OCCUPATIONAL THERAPY SPLINTING EVALUATION REFERRAL SOURCE: Dr. Franco DIAGNOSIS: 1. Crush injury of hand, right, initial encounter DATE OF INJURY: DATE OF SURGERY: na JOSY BENITEZ FOLLOW UP: One week TOTAL TREATMENT TIME: 30 Minutes TIMED CODE TREATMENT TIME: 30 minutes CURRENT HISTORY: Huang Morton is a 35 y.o. year old Right hand dominant male who sustained a crush injury when a 6x6 fell on the dorsum of his hand. Huang Morton is referred to Occupational Therapy for evaluation and treatment to include splinting. Patient presents today alone. CURRENT SYMPTOMS: Patient presents with pain, swelling and limited mobility/range of motion. Dorsumof his hand is very swollen and full. PAIN: (Assessed using the visual analog scale) At Rest: 10/10 With Activity: 10/10 FUNCTIONAL LIMITATIONS: Vocational status: Occupation: disabled, helps friends with home projects: was helping a friend when the house fell on him Patient Specific Functional Scale (PSFS): 0/10 (unable to perform) to 10/10 (Able to perform without difficulty) Activity At Evaluation 1.) Bathing 5 2.) Dressing 5 3.) Home management 5 Average Score: 50% TREATMENT TODAY: Educated patient in etiology and biomechanics as related to patient's symptoms Fabricated a volar wrist cockup splint Instructed in splint wear and care Range of Motion Exercises: of his digits and wrist to tolerance, elevation, and light manual massage to dorsum of his hand Will b pursuing therapy in the [facility] ASSESSMENT: Huang Morton has a well fitting splint post therapy. Huang Morton is able to independently verbalize and demonstrate his home program following instructions today. Huang Morton has good potential for gains with therapy/splinting. Patient knows to call with any questions or concerns. Short Term Goals (to be met by end of the visit today): Date Goal Met: Today 1. Huang Morton will demonstrate independence with donning and doffing of splint and verbalization of splinting purpose. Goal Status: Meets. Today 2. Huang Morton will be independent with home exercises as evident with demonstration in therapy. Goal Status: Meets PLAN: Splinting to provide support and protection to the joint (X) Huang Morton participated in the evaluation, collaborated on treatment goals, and agrees to thetreatment plan . documented in this encounter Plan of Treatment Not on file documented as of this encounter Visit Diagnoses Diagnosis Crush injury of hand, right, initial encounter documented in this encounter Care Teams Holistic Nutritionist Relationship Specialty Start Date End Date Ehsan Baker MD PCP - General 06/25/10 11/21/18 documented as of this encounter
--- OUTSIDE RECORDS SUMMARY | 2024-09-12 18:33 | XMS_ITS | Encounter Summary ---
Author Organization [facility] Address [address] [place] [address] Care Team Providers Care Major Assembly Inspector Name Role Phone Unavailable Primary Care Provider Unavailabl e Encounter Details Date Type Department Care Team (Late st Contact Info) Description 01/26/2016 Historical Results Only [facility] Radiology Results [address] [place] [address] Curtis Beasley PA-C [address] [address] Social History Tobacco Use Types Packs/Day Years [...] Procedure Name Priority Date/Time Associated Diagnosis Comments XR WRIST LEFT 3 OR MORE VIEWS 01/26/2016 13:43 EDT documented in this encounter Results * XR WRIST LEFT 3 OR MORE VIEWS (01/26/2016 13:43 EDT) Anatomical Region Laterality Modality Upper Extremities Left Other 01/26/2016 13:4 3 EDT Narrative 01/27/2016 11:21 EDT [facility] [address] [place], [place] [id number] Diagnostic Imaging Report Signed Patient Name:MAYITO MORTON ? Date of :1980 ? MR Number:[id number] Age:35 ?Sex:M Category: CR ? Date of Exam:01/26/16 Procedure: CR: Wrist, LT; 3+ views ? Ordering Physician: Curtis Beasley CC: Optional Provider Curtis Beasley LEFT WRIST FOUR VIEWS CLINICAL HISTORY: ??Injury related to fall. Four views of the left wrist demonstrate no convincing evidence for acute fracture nor is dislocation or subluxation apparent. ??If there is high persistent clinical concern for fracture, follow-up plain films in 7-10 days may prove helpful. OFE/carmenza Dictated by: Chester Hager MD ? D/ 1121 Transcribed by: JEREMÍAS ? D/ 1238 E-Signed by: <Electronically signed by Chester Hager MD> ? D/ 1151 Procedure Note Chester Hager MD - 05/03/2019 [place] [id number] Diagnostic Imaging Report Signed Patient Name:MAYITO MORTON AAccount Number:[id number] Date of :1980 MRNumber:[id number] Age:35 Sex:M Category: CR Date ofExam:01/26/16 Procedure: CR: Wrist, LT; 3+ viewsAccession: [id number] Ordering Physician: Curtis Beasley CC: Optional Provider Curtis Beasley LEFT WRIST FOUR VIEWS CLINICAL HISTORY: Injury related to fall. Four views of the left wrist demonstrate no convincing evidence for acutefracture nor is dislocation or subluxation apparent. If there is high persistent clinicalconcern for fracture, follow-up plain films in 7-10 days may prove helpful. OFE/carmenza Dictated by: Chester Hager MDD/ 1121 Transcribed by: ML/ 1238 E-Signed by: <Electronically signed by Chester Hager MD>D/ 1151 us Curtis Beasley PA-C IMG DIAGNOSTIC IMAGING ORDERABLES Final Result documented in this encounter Visit Diagnoses Not on filedocumented in this encounter
--- OUTSIDE RECORDS SUMMARY | 2024-09-12 18:33 | XMS_ITS | Encounter Summary ---
Author Organization [facility] [place] [address] Care Team Providers Care Director Public Service Name Role Phone Ehsan Baker MD Primary Care Provider Owen valdivia Encounter Details Date Type Department Care Team (Late st Contact Info) Description 10/24/2015 Notes [place] [address] Hanna Crandall MSW Social History Tobacco Use Types Packs/Day Years Used Date Smoking Tobacco: Former Smokeless Tobacco: Current Chew Alcohol Use Standard Drinks/Week Comments No 0 (1 standard drink = 0.6 oz pur e alcohol) Sex and Gender Information Value Date Recorded Sex Assigned at Not on file Gender Identity Not on file Sexual Orientation Not on file documented as of this encounter Progress Notes * Hanna Okeefe MSW - 11/01/2015 4:28 PM EDT ON [employer] This worker was paged to assist Pt and partner Aliza with food resources. Huang was at the hospital for a very early appointment but the appointment was delayed until early afternoon. The couple reported that they did not plan for this and have no money or food to eat. Provided a voucher to the couple as this situation was beyond their control. MARVIN Meier, [facility] Pager #[phone] documented in this encounter Plan of Treatment Not on file documented as of this encounter Visit Diagnoses Not on filedocumented in this encounter Care Teams Director Public Service Relationship Specialty Start Date End Date Ehsan Baker MD PCP - General 06/25/10 11/21/18 documented as of this encounter
--- OUTSIDE RECORDS SUMMARY | 2024-09-12 18:33 | XMS_ITS | Encounter Summary ---
[place] [address] Care Team Providers Care Brand Strategist Name Role Phone Ehsan Baker MD Primary Care Provider Scotta shea Encounter Details Date Type Department Care Team (Late st Contact Info) Description 10/24/2015 Orders [place] [address] Jacquie Figueroa Social History Tobacco Use Types Packs/Day Years [...] on filedocumented in this encounter Care Teams Brand Strategist Relationship Specialty Start Date End Date Ehsan Baker MD PCP - General 06/25/10 11/21/18 documented as of this encounter
--- OUTSIDE RECORDS SUMMARY | 2024-09-12 18:33 | XMS_ITS | Encounter Summary ---
[place] [address] Care Team Providers Care Eclectic Doctor Name Role Phone Ehsan Baker MD Primary Care Provider Unavaila ble Reason for Referral * Occupational Therapy (Routine) - Closed Specialty Diagnoses / Procedures Referred By Lucrecia lopez Referred To Contact Occupational Therapy Diagnoses Crush injury of hand, right, initial encounter Laura Shelby PA [address] [place] [address] [facility] [place] [address] Referral ID Status Reason Start Date Expiration Date V isits Requested Visits Authorized [id number] Closed Evaluate and Treat 10/24/2015 10/23/2016 12 12 * Diagnostic Test (Routine) - Closed Specialty Diagnoses / Procedures Referred By Lucrecia lopez Referred To Contact Radiology Diagnoses Crush injury of hand, right, initial encounter Procedures CT Hand WO Contrast Right Laura Shelby PA [address] [place] [address] [facility] [place] [address] Referral ID Status Reason Start Date Expiration Date V isits Requested Visits Authorized [id number] Closed Specialty Service Requested 10/24/2015 01/22/2016 1 1 Reason for Visit * Reason Comments Right Hand Pain DOI 10/16/15 * Consultation (Routine) - Closed Specialty Diagnoses / Procedures Referred By Lucrecia lopez Referred To Contact Orthopaedics Diagnoses RIGHT HAND CRUSH INJURY 10/16/15 Procedures Self mail [facility] [address] [place] [address] Referral ID Status Reason Start Date Expiration Date Visits Re quested Visits Authorized [id number] Closed 10/22/2015 10/21/2016 1 1 Encounter Details Date Type Department Care Team (Late st Contact Info) Description 10/24/2015 8:00 AM EDT Office [place] [address] Christopher Gaffney MD [facility] [place] [address] Crush injury of hand, right, initial encounter Social History Tobacco Use Types Packs/Day Years Used Date Smoking Tobacco: Former Smokeless Tobacco: Current Chew Tobacco Cessation:Ready to Q uit: Yes; Counseling Given: No Alcohol Use Standard Drinks/Week Comments No 0 (1 standard drink = 0.6 oz pur e alcohol) Sex and Gender Information Value Date Recorded Sex Assigned at Not on file Gender Identity Not on file Sexual Orientation Not on file documented as of this encounter Last Filed Vital Signs Vital Sign Reading Time Taken Comments Blood Pressure 127/91 10/24/2015 8:01 AM EDT Pulse 85 10/24/2015 8:01 AM EDT Temperature - - Respiratory Rate - - Oxygen Saturation - - Inhaled Oxygen Concentration - - Weight 68 kg (150 lb) 10/24/2015 8:01 AM EDT chelsie bal Height 170.2 cm (5' 7) 10/24/2015 8:01 AM EDT v erbal Body Mass Index 23.49 10/24/2015 8:01 AM EDT documented in this encounter Progress Notes * Laura Shelby PA - 10/24/2015 12:58 PM EDT This 35-year-old comes in today for evaluation of his right hand. He is right hand dominant, on disability, who had timber fall on his right hand on 10/16/15. He was evaluated elsewhere and no fracture was identified. He continued to have considerable pain and swelling. He has been splinted. He has some generalized numbness in the hand. He was then referred to Dr. Gaffney for further evaluation. He has no previous history of injury to this hand. He has been using naproxen and Tylenol for pain without any significant relief. Examination today with Dr. Gaffney shows the patient to appear uncomfortable, but in no acute distress. He has a large amount of swelling on the dorsum of his right hand with ecchymosis along the ulnar aspect. He admits to slightly decreased sensation in all fingers. He really has considerable pain when trying to make a gentle fist or extend his fingers. He is tender along the dorsum of his hand, more specifically in the base of the second and third metacarpals. He has no significant swelling at the wrist but motion at the wrist causes pain in the hand. The hand is well perfused. X-rays taken elsewhere were reviewed. We questioned that there may have been abnormality at the base of the index metacarpal. We recommended CT scan due to his amount of pain and swelling; this was able to be done today and this 2 hour reading does not show any acute fracture or dislocation; the radiologist's report is not available at this time. IMPRESSION: Contusion right hand 10/16/15. TREATMENT: The patient met with OT and was placed in an orthoplast volar splint. He was to begin on gentle range of motion exercises, continue with naproxen and Tylenol. Prescription given for hydrocodone, #20 tablets; he was advised we would not refill this. He was given a prescription to begin OT nearer his home. We will plan on seeing him back in 7-10 days for reexamination. New x-rays should not be needed at that time. documented in this encounter Plan of Treatment Scheduled Referrals Name Type Priority Associated Diagnoses Order Schedule Referral to Occupational Therapy Outpatient Referral Routine Crush injury of hand, right, initial encounter Ordered: 10/24/2015 documented as of this encounter Results * CT Hand WO Contrast Right (10/24/2015 12:40 PM EDT) Anatomical Region Laterality Modality Hand Right Computed Tomogra phy Impressions 10/24/2015 1:30 PM EDT IMPRESSION: No fracture is identified. Narrative 10/24/2015 1:30 PM EDT EXAMINATION: CT HAND WO CONTRAST RIGHT CLINICAL HISTORY: ? CMC fracture dislocation, 2nd, 3rd CMC most tender, CMC's to radius TECHNIQUE: AP images of the wrist were acquired without contrast. The images were reconstructed into multiplanar 2-dimensional images. Three-dimensional model was also created and reviewed. COMPARISON: 10/20/2015. FINDINGS: No fracture or dislocation is identified. Specifically, at the second and third carpometacarpal joints I do not see evidence of acute injury. No obvious tendon disruption is seen. No joint space narrowing. Procedure Note Martinez Veras MD - 10/24/2015 EXAMINATION: CT HAND WO CONTRAST RIGHT CLINICAL HISTORY: ? CMC fracture dislocation, 2nd, 3rd CMC most tender,CMC's to radius TECHNIQUE: AP images of the wrist were acquired without contrast. Theimages were reconstructed into multiplanar 2-dimensional images.Three-dimensional model was also created and reviewed. COMPARISON: 10/20/2015. FINDINGS: No fracture or dislocation is identified. Specifically, at the second andthird carpometacarpal joints I do not see evidence of acute injury. No obvious tendon disruption is seen. No joint space narrowing. IMPRESSION IMPRESSION: No fracture is identified. Christopher Gaffney MD IMG CT ORDERABLES documented in this encounter Visit Diagnoses Diagnosis Crush injury of hand, right, initial encounter Crush injury of hand, right, initial encounter documented in this encounter Care Teams Eclectic Doctor Relationship Specialty Start Date End Date Ehsan Baker MD PCP - General 06/25/10 11/21/18 documented as of this encounter
--- OUTSIDE RECORDS SUMMARY | 2024-09-12 18:33 | XMS_ITS | Clinical Summary ---
Author Organization [facility] Address [facility] [place] [address] Care Team Providers Care Clinical Quality Rn Name Role Phone None Primary Care Provider Unavailabl e Allergies Active Allergy Reactions Criticality Noted Date Comments Aspirin Hives Medium 10/24/2015 Ibuprofen Other (See Comments) High 10/24/2015 Knots stomach up Medications Medication Sig Dispensed Refills Start Date End Date Status PHENobarbital (LUMINAL) 32.4 mg Tablet Take 32.4 mg by mouth 2 times daily. 1 in the morning, 3 at night Active phenytoin (DILANTIN) 100 mg Capsule Take 200 mg by mouth daily. Active citalopram (CELEXA) 40 mg Tablet Take 40 mg by mouth daily. Active mirtazapine (REMERON) 30 mg Tablet Take 30 mg by mouth nightly. Active SUMAtriptan (IMITREX) 25 mg Tablet Take 25 mg by mouth as needed for Migraine. Active Active Problems Problem Noted Date Diagnosed Date Crush injury of hand 10/24/2015 Overview (10/24/2015): Right hand, DOI 10/16/2015 Family History Medical History Relation Comments Diabetes Maternal Grandmother Cancer Neg Hx Relation Status Comments Maternal Grandmother Social History Tobacco Use Types Packs/Day Years [...] on file Sexual Orientation Not on file Last Filed Vital Signs Vital Sign Reading Time Taken Comments Blood Pressure 130/89 10/31/2015 3:47 PM EDT Pulse 92 10/31/2015 3:47 PM EDT Temperature - - Respiratory Rate - - Oxygen Saturation - - Inhaled Oxygen Concentration - - Weight 68 kg (150 lb) 10/31/2015 3:47 PM EDT pt reported Height 170.2 cm (5' 7) 10/31/2015 3:47 PM EDT p t reported Body Mass Index 23.49 10/31/2015 3:47 PM EDT Plan of Treatment Health Maintenance Due Date Last Done Comments CT Colonography 1979 Colonoscopy 1979 Colorectal Cancer Screening 1980 FIT DNA 1979 FIT 1980 Sigmoidoscopy (10 year) with FIT yearly 1980 Sigmoidoscopy 1980 HIV screen 1997 Hepatitis C Screening 1997 Lipid Screening 1997 Hepatitis B vaccine (0-59 yrs) (1) 1998 Tetanus/Diphtheria/Pertussis Vaccines (1 - Tdap) 05/14 Covid-19 Vaccine ( - season) 2024 Influenza (Flu) vaccine (1 o f 1 - Influenza standard series) 04/03/2024 Care Teams Clinical Quality Rn Relationship Specialty Start Date End Date None None PCP - General 08/12/24
--- OUTSIDE RECORDS SUMMARY | 2024-09-12 18:33 | XMS_ITS | Encounter Summary ---
Author Organization [facility] [place] [address] Care Team Providers Care Optical Lab Technician Name Role Phone Ehsan Baker MD Primary Care Provider Owen valdivia Encounter Details Date Type Department Care Team (Late st Contact Info) Description 10/20/2015 - 10/20/2015 11:59 PM EDT Hospital Encounter Radiology Library [place] [address] [address] José Miguel Cabezas Pain Discharge Disposition: Home Social History Tobacco Use Types Packs/Day Years Used Date Smoking Tobacco: Never Assessed Sex and Gender Information Value Date Recorded Sex Assigned at Not on file Gender Identity Not on file Sexual Orientation Not on file documented as of this encounter Plan of Treatment Not on file documented as of this encounter Procedures Procedure Name Priority Date/Time Associated Diagnosis Comments FILM LIBRARY STORAGE ONLY DX HAND Routine 10/20/2015 12:00 AM EDT Pain documented in this encounter Results * Film Library- Storage only DX Hand (10/20/2015 12:00 AM EDT) Narrative [facility] - 10/23/2015 12:20 PM EDT See PACS for result report. Dr José Miguel Cabezas IMG FILM LIBRARY ORD ERABLES [place], [place] documented in this encounter Visit Diagnoses Diagnosis Pain Generalized pain documented in this encounter Care Teams Optical Lab Technician Relationship Specialty Start Date End Date Ehsan Baker MD PCP - General 06/25/10 11/21/18 documented as of this encounter
--- OUTSIDE RECORDS SUMMARY | 2024-09-12 18:33 | XMS_ITS | Encounter Summary ---
Author Organization [facility] Address [facility] [place] [address] Care Team Providers Care Blow Down Helper Name Role Phone Ehsan Baker MD Primary Care Provider Owen valdivia Encounter Details Date Type Department Care Team (Late st Contact Info) Description 10/31/2015 4:10 PM EDT [place] [address] Christopher Gaffney MD [facility] [place] [address] Crush injury of hand, right, subsequent encounter Social History Tobacco Use Types Packs/Day [...] Mass Index 23.49 10/31/2015 3:47 PM EDT documented in this encounter Progress Notes * Shannon Montaño PA - 10/31/2015 4:52 PM EDT PATIENT NAME: Huang Morton AGE: 35 y.o. MR#: [id number] DATE OF VISIT: 10/31/2015 DATE OF INJURY/ONSET: 10/16/2015 STAFF: Dr. Gaffney CHIEF COMPLAINT: follow up for right hand crush injury HISTORY OF PRESENT ILLNESS: Mr. Morton is a 35 y.o. year old male who comes into clinic today for follow up regarding the right hand. He sustained a crush injury to his right hand approximately 2 weeks ago. He presents to clinic last week and was found to have quite severe swelling over the dorsalaspect of the hand. A CT scan was performed and there was no evidence of fracture. He was seen by hand therapy and had a volar resting splint made. He also was given a referral for therapy to continue with treatment closer to home. He presents today to reassess his swelling. He has not yet started therapy and still is concerned that he may have a fracture over the metacarpal area. His swelling has improved, but he does have some isolated swelling that persists over the hand. PHYSICAL EXAM: Mr. Morton is alert and oriented. He appears in no acute discomfort and is resting comfortably in the exam room. Inspection: Skin remains intact. His swelling has improved significantly. He still has a good amount of swelling dorsally over the hand, but his MCP joints are now visible. He does not appear to havea wrist effusion. Palpation: He continues to have generalized discomfort dorsally over the hand. There is no palpablecrepitus. ROM/Strength: He is able to perform active finger range of motion. He is able to fully extend the digits. He has some difficulty making a tight fist as this puts tension over the dorsal aspect of thehand. His wrist range of motion remains grossly intact, but he does have some pain at end range flexion and extension. Neurovascular: He is able to feel light touch in the fingertips, but did notice some numbness in the hand medially following the injury. Hand is well perfused. RADIOLOGICAL STUDIES: His previous CT scan was reviewed. There is no evidence of fracture over the metacarpals. ASSESSMENT: Right hand crush injury with residual swelling PLAN: I reviewed the CT scan with the patient today. He does not have any evidence of fracture. Hisswelling has appeared to improve, but still persists. He was given a compression sleeve to use underneath his splint. He does not need to use his splint time signal wirer, but can use this for comfort as well as during activity for protection. I encouraged him to start therapy to work on gentle range of motion, additional edema control, desensitization, as well as treatment with modalities. He can gradually increase use of his hand as tolerated by his symptoms. He should continue with ice and elevationfor pain control. He will return for follow up in approximately 2-3 weeks if he is having difficulty with therapy, but otherwise he will follow up as needed. The patient understands to contact us if they have any other questions or concerns. The above documentation was completed using [employer] voice recognition software. documented in this encounter Plan of Treatment Not on file documented as of this encounter Visit Diagnoses Diagnosis Crush injury of hand, right, subsequent encounter documented in this encounter Care Teams Blow Down Helper Relationship Specialty Start Date End Date Ehsan Baker MD PCP - General 06/25/10 11/21/18 documented as of this encounter
--- OUTSIDE RECORDS SUMMARY | 2024-09-12 18:33 | XMS_ITS | Encounter Summary ---
Author Organization Formerly [facility] [place] [address] Care Team Providers Care Supply Teacher Name Role Phone Ehsan Baker MD Primary Care Provider Unavaila ble Reason for Referral * Diagnostic Test (Routine) - Closed Specialty Diagnoses / Procedures Referred By Contac t Referred To Contact Radiology Diagnoses Crush injury of hand, right, initial encounter Procedures CT Hand WO Contrast Right GroLaura leyva PA [address] [place] [address] [facility] [place] [address] Referral ID Status Reason Start Date Expiration Date V isits Requested Visits Authorized [id number] Closed Specialty Service Requested 10/24/2015 01/22/2016 1 1 Reason for Visit * Diagnostic Test (Routine) - Closed Specialty Diagnoses / Procedures Referred By Contac t Referred To Contact Radiology Diagnoses Crush injury of hand, right, initial encounter Procedures CT Hand WO Contrast Right Laura Shelby PA [address] [place] [address] [facility] [place] [address] Referral ID Status Reason Start Date Expiration Date V isits Requested Visits Authorized [id number] Closed Specialty Service Requested 10/24/2015 01/22/2016 1 1 Encounter Details Date Type Department Care Team (Latest Contact Info) Description 10/24/2015 11:23 AM EDT - 10/24/2015 11:59 PM EDT Hospital [place] [address] Christopher Gaffney MD [facility] [place] [address] Crush injury of hand, right, initial encounter Discharge Disposition: Home Social History Tobacco Use Types Packs/Day Years Used Date Smoking Tobacco: Former Smokeless Tobacco: Current Chew Alcohol Use Standard Drinks/Week Comments No 0 (1 standard drink = 0.6 oz pur e alcohol) Sex and Gender Information Value Date Recorded Sex Assigned at Not on file Gender Identity Not on file Sexual Orientation Not on file documented as of this encounter Medications at Time of Discharge Medication Sig Dispensed Refills Start Date End Date PHENobarbital (LUMINAL) 32.4 mg Tablet Take 32.4 mg by mouth 2 times daily. 1 in the morning, 3 at night phenytoin (DILANTIN) 100 mg Capsule Take 200 mg by mouth daily. citalopram (CELEXA) 40 mg Tablet Take 40 mg by mouth daily. mirtazapine (REMERON) 30 mg Tablet Take 30 mg by mouth nightly. SUMAtriptan (IMITREX) 25 mg Tablet Take 25 mg by mouth as needed for Migraine. HYDROcodone-acetaminophe n (NORCO) 5-325 mg Tablet Take 1 tablet by mouth every 6 hours as needed for Pain. 20 tablet 0 10/24/2015 10/31/2015 documented as of this encounter Plan of Treatment Not on file documented as of this encounter Procedures Procedure Name Priority Date/Time Associated Diagnosis Comments CT HAND WO CONTRAST RIGHT Routine 10/24/2015 12:40 PM EDT Crush injury of hand, right, initial encounter documented in this encounter Results * CT Hand WO [...] encounter documented in this encounter Care Teams Supply Teacher Relationship Specialty Start Date End Date Ehsan Baker MD PCP - General 06/25/10 11/21/18 documented as of this encounter
== END 2024-09-12 20:24 ==
PROVIDERS: PCP Student in an Organized Health Care Education/Training Program
DX: Z53.21 Procedure and treatment not carried out due to patient leaving prior to being seen by health care provider (principal)

== ENCOUNTER 2024-12-07 09:09 | Outpatient (REF) | payer MEDICAID, SELFPAY ==
[2024-12-07 16:14] LABS: Hemoglobin A1C 5.2 % (<5.7)
[2024-12-07 16:38] LABS: ALT 16 U/L (16-63); AST 19 U/L (15-37); Albumin 3.8 g/dL (3.4-5.0); Alkaline Phosphatase 91 U/L (46-116); Anion Gap 4.7 mmol/L (3-11); BUN 10 mg/dL (7-18); Bilirubin, Total 0.3 mg/dL (0.2-1.0); CO2 30.3 mmol/L (21.0-32.0); CREATININE 0.9 mg/dL (0.70-1.30); Calcium 9.3 mg/dL (8.5-10.1); Calculated LDL 87 mg/dL (<100); Chloride 105 mmol/L (98-107); Cholesterol 152 mg/dL (<200); Estimated GFR 107.33 (mL/min/1.73m2); Glucose 90 mg/dL (74-106); HDL Cholesterol 56 mg/dL (>or=40); Potassium 4.7 mmol/L (3.5-5.1); Sodium 140 mmol/L (136-145); Total Protein 6.8 g/dL (6.4-8.2); Triglyceride 49 mg/dL (<150)
== END 2024-12-07 09:10 | disposition home or self-care (01) ==
LOC: NCHCN 09:09
PROVIDERS: PCP Student in an Organized Health Care Education/Training Program; Visit Provider Student in an Organized Health Care Education/Training Program
DX: R73.03 Prediabetes (principal); Z13.220 Encounter for screening for lipoid disorders; Z13.228 Encounter for screening for other metabolic disorders
CPT/HCPCS: 80053; 80061; 83036